=== PATIENT | male | born 1960 | race Two or more races ===

== ENCOUNTER 2018-05-04 08:02 | Emergency (ER) | payer OTHER ==
[~2018-05-04] VITALS: Ht 167.6 cm; Wt 75.7 kg
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
[2018-05-04] MEDS ORDERED: LORAZEPAM INJ 2 MG/ML VIAL ONE (08:19)
[2018-05-04] MEDS ORDERED: ONDANSETRON HCL/PF 4 MG/2 ML VIAL ONE (08:19)
[2018-05-04 08:27] LABS: BASOPHILS # (AUTO) 0.1 /CMM (0.0-0.2); EOSINOPHILS % (AUTO) 3.9 % (0.0-6.0); HEMATOCRIT 48 % (39-51); HEMOGLOBIN 15.6 g/dL (13.5-17.5); LYMPHOCYTES # (AUTO) 2.9 /CMM (0.8-4.8); MEAN CORPUSCULAR HGB CONC 33 g/dl (31.0-36.0); MEAN CORPUSCULAR VOLUME 85 fL (80-96); MONOCYTES # (AUTO) 0.8 /CMM (0.1-1.30); MONOCYTES % (AUTO) 10.9 % (2.0-12.0); NEUTROPHILS # (AUTO) 2.9 /CMM (1.8-8.9); NEUTROPHILS % (AUTO) 42.2 % (43.0-81.0); PLATELET COUNT (AUTO) 287 /CMM (150-450); RED BLOOD CELL COUNT(AUTO) 5.57 MIL/uL (4.5-6.0)
[2018-05-04] MEDS ORDERED: ONDANSETRON HCL/PF 4 MG/2 ML VIAL IVP ONE (08:30)
[2018-05-04] MEDS ORDERED: LORAZEPAM INJ 2 MG/ML VIAL IVP ONE (08:30)
[2018-05-04] MEDS ORDERED: IV NS 0.9% 1,000 ML BAG IV ONE (08:30)
[2018-05-04 08:47] LABS: CALCIUM, SERUM 8.9 mg/dL (8.5-10.1); CARBON DIOXIDE 25 mmol/L (21-32); CHLORIDE 103 mmol/L (98-107); GLUCOSE 182 mg/dL (74-106); POTASSIUM 3.2 mmol/L (3.5-5.1); SODIUM SERUM 139 mmol/L (136-145); UREA NITROGEN, BLOOD 15 mg/dL (7-18)
[2018-05-04 08:51] LABS: CREATINE KINASE, TOTAL 148 U/L (39-308)
[2018-05-04 08:53] LABS: ALANINE AMINOTRANSFERASE 37 U/L (12-78); ALBUMIN 4.1 g/dL (3.4-5.0); ALCOHOL, BLOOD < 3 mg/dL (0-0); ALKALINE PHOSPHATASE 117 U/L (46-116); ASPARTATE AMINOTRANSFERASE 24 U/L (15-37); BILIRUBIN,DIRECT 0.1 mg/dL (0.0-0.2); BILIRUBIN,TOTAL 0.4 mg/dL (0.2-1.0); TOTAL PROTEIN, SERUM 7.6 g/dL (6.4-8.2)
[2018-05-04 08:54] LABS: SALICYLATE 2.4 mg/dL (2.8-20.0)
--- NOTE | 2018-05-04 08:56 | NUR ---
MASH PREPARATORY OPERATOR AT BEDSIDE TO TAKE PATIENT FOR CT SCAN
--- NOTE | 2018-05-04 09:58 | NUR ---
Patient discharged to home in stable condition. Written and verbal after care instructions given. Patient verbalizes understanding of instruction. IV removed. Catheter intact and site benign. Pressure and 4x4 applied to site. No bleeding noted.
[2018-05-04 09:59] VITALS: BP 144/90
== END 2018-05-04 10:00 | disposition home or self-care (01) ==
LOC: ER 08:08
DX: R42 Dizziness and giddiness (principal); F15.10 Other stimulant abuse, uncomplicated; F12.90 Cannabis use, unspecified, uncomplicated; I10 Essential (primary) hypertension; E11.9 Type 2 diabetes mellitus without complications
CPT/HCPCS: 36415; 70450; 80048; 80076; 80329; 82550; 85025; 96361; 96374; 96375; 99284; A4606; G0480 ×2; J2060; J2405; J7030; Z7610

== ENCOUNTER 2018-10-18 13:03 | Emergency (ER) | payer MEDICAID, OTHER ==
[~2018-10-18] VITALS: Ht 165.1 cm; Wt 69.9 kg
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
--- NOTE | 2018-10-18 13:12 | NUR ---
DR ELLIS AT BEDSIDE
[2018-10-18 13:27] LABS: BASOPHILS # (AUTO) 0.1 /CMM (0.0-0.2); BASOPHILS % (AUTO) 1.6 % (0.0-2.0); EOSINOPHILS % (AUTO) 2.4 % (0.0-6.0); HEMATOCRIT 47 % (39-51); HEMOGLOBIN 16.2 g/dL (13.5-17.5); LYMPHOCYTES # (AUTO) 1.8 /CMM (0.8-4.8); LYMPHOCYTES % (AUTO) 34.3 % (20.0-44.0); MEAN CORPUSCULAR HGB CONC 35 g/dl (31.0-36.0); MEAN CORPUSCULAR VOLUME 91 fL (80-96); MONOCYTES # (AUTO) 0.5 /CMM (0.1-1.30); MONOCYTES % (AUTO) 9.4 % (2.0-12.0); NEUTROPHILS # (AUTO) 2.7 /CMM (1.8-8.9); NEUTROPHILS % (AUTO) 52.3 % (43.0-81.0); PLATELET COUNT (AUTO) 279 /CMM (150-450); RED BLOOD CELL COUNT(AUTO) 5.13 MIL/uL (4.5-6.0); WHITE BLOOD COUNT (AUTO) 5.2 K/uL (4.3-11.0)
[2018-10-18] MEDS ORDERED: IV NS 0.9% 1,000 ML BAG IV ONE (13:30)
[2018-10-18 13:31] LABS: CALCIUM, SERUM 8.9 mg/dL (8.5-10.1); POTASSIUM 3.8 mmol/L (3.5-5.1)
[2018-10-18 13:37] LABS: ALBUMIN 3.6 g/dL (3.4-5.0); BILIRUBIN,DIRECT 0.1 mg/dL (0.0-0.2); TOTAL PROTEIN, SERUM 7.1 g/dL (6.4-8.2)
--- NOTE | 2018-10-18 13:41 | NUR ---
PROVIDED W MEAL TRAY, TOLERATING PO WELL.
[2018-10-18] MEDS ORDERED: LATA2.5D7 EACHEYE (14:16)
[2018-10-18] MEDS ORDERED: LISI10TA5 PO (14:16)
[2018-10-18] MEDS ORDERED: METF-441 PO (14:16)
[2018-10-18] MEDS ORDERED: ASPI-1152 PO (14:16)
[2018-10-18] MEDS ORDERED: CLOP75TA15 PO (14:16)
[2018-10-18] MEDS ORDERED: ATOR40TA PO (14:16)
--- NOTE | 2018-10-18 14:41 | NUR ---
IV removed. Catheter intact and site benign. Pressure and 4x4 applied to site. No bleeding noted.Patient discharged to home with son in stable condition. Written and verbal after care instructions given. Patient verbalizes understanding of instruction.
[2018-10-18 14:42] VITALS: BP 143/101
== END 2018-10-18 14:47 | disposition home or self-care (01) ==
LOC: ER 13:07
DX: R79.89 Other specified abnormal findings of blood chemistry (principal); R42 Dizziness and giddiness; I10 Essential (primary) hypertension; E11.9 Type 2 diabetes mellitus without complications; Z79.84 Long term (current) use of oral hypoglycemic drugs; Z79.82 Long term (current) use of aspirin; Z79.899 Other long term (current) drug therapy
CPT/HCPCS: 36415; 80048; 80076; 83690; 84484; 85025; 93005; 96360; 99284; J7030

== ENCOUNTER 2018-10-20 15:30 | Emergency (ER) | payer MEDICAID, OTHER ==
[~2018-10-20] VITALS: Ht 165.1 cm; Wt 72.6 kg
[~2018-10-20 15:30] MED LIST: ASPI-1152 PO; ATOR40TA PO; CLOP75TA15 PO; LATA2.5D7 EACHEYE; LISI10TA5 PO; METF-441 PO
--- NOTE | 2018-10-20 15:37 | NUR ---
CALLED TO TRIAGE,"STEPPED OUT TO CALL SOMEONE PER ADMITTING
--- NOTE | 2018-10-20 15:45 | NUR ---
SILVANO 89 from home c/o nausea, "I dont feel good" Patient a/ox3, no distress noted, breathing even and unlabored, no sob noted. Attached on the monitor. Denies pain or discomfort at this time.
[2018-10-20] MEDS ORDERED: ONDANSETRON HCL/PF 4 MG/2 ML VIAL IVP ONE (16:00)
[2018-10-20] MEDS ORDERED: IV NS 0.9% 1,000 ML BAG IV ONE (16:00)
[2018-10-20] MEDS ORDERED: ONDANSETRON HCL/PF 4 MG/2 ML VIAL ONE (16:14)
[2018-10-20 16:19] LABS: BASOPHILS # (AUTO) 0.1 /CMM (0.0-0.2); BASOPHILS % (AUTO) 1.3 % (0.0-2.0); EOSINOPHILS % (AUTO) 2.8 % (0.0-6.0); HEMATOCRIT 44 % (39-51); HEMOGLOBIN 14.7 g/dL (13.5-17.5); LYMPHOCYTES # (AUTO) 1.9 /CMM (0.8-4.8); MEAN CORPUSCULAR HGB CONC 33 g/dl (31.0-36.0); MEAN CORPUSCULAR VOLUME 93 fL (80-96); MONOCYTES # (AUTO) 0.6 /CMM (0.1-1.30); MONOCYTES % (AUTO) 10.1 % (2.0-12.0); NEUTROPHILS # (AUTO) 3.4 /CMM (1.8-8.9); NEUTROPHILS % (AUTO) 54.8 % (43.0-81.0); RED BLOOD CELL COUNT(AUTO) 4.76 MIL/uL (4.5-6.0); WHITE BLOOD COUNT (AUTO) 6.2 K/uL (4.3-11.0)
[2018-10-20 16:22] LABS: CALCIUM, SERUM 8.3 mg/dL (8.5-10.1); POTASSIUM 3.9 mmol/L (3.5-5.1)
[2018-10-20 16:27] LABS: ALBUMIN 3.3 g/dL (3.4-5.0); BILIRUBIN,DIRECT 0.1 mg/dL (0.0-0.2); BILIRUBIN,TOTAL 0.4 mg/dL (0.2-1.0); TOTAL PROTEIN, SERUM 6.5 g/dL (6.4-8.2)
[2018-10-20 16:37] LABS: PLATELET COUNT (AUTO) 407 /CMM (150-450)
--- NOTE | 2018-10-20 17:16 | NUR ---
PATIENT'S BROTHER JORGE [phone], CALL HIM WHEN PATIENT IS READY FOR BUSINESS WRITER.
[2018-10-20 17:20] LABS: APPEARANCE,URINE CLEAR (CLEAR); BILIRUBIN,URINE NEGATIVE (NEGATIVE); BLOOD, URINE NEGATIVE Ery/uL (NEGATIVE); COLOR,URINE YELLOW (YELLOW); KETONES,URINE TRACE (NEGATIVE); LEUKOCYTE ESTERASE ,URINE NEGATIVE (NEGATIVE); NITRITE, URINE NEGATIVE (NEGATIVE); PROTEIN,URINE NEGATIVE (NEGATIVE); UGLUCOSE NEGATIVE (NEGATIVE)
[2018-10-20 17:41] LABS: BACTERIA,URINE Rare /HPF (None Seen); MUCUS,URINE Few /LPF (None Seen); RBC,URINE 0-2 /HPF (0-2); SPERM,URINE Rare /HPF (None Seen); SQUAMOUS EPITHELIAL CELL,UR 0-2 /HPF (None Seen); WBC,URINE 0-2 /HPF (0-3)
--- NOTE | 2018-10-20 18:53 | NUR ---
PIV REMOVED, RX PROVIDED. Patient discharged to home in stable condition. Written and verbal after care instructions given. Patient verbalizes understanding of instruction.
[2018-10-20 18:55] VITALS: BP 135/97
== END 2018-10-20 18:56 | disposition home or self-care (01) ==
LOC: ER 15:30
DX: R55 Syncope and collapse (principal); R11.0 Nausea; E86.0 Dehydration; E88.09 Other disorders of plasma-protein metabolism, not elsewhere classified; R00.1 Bradycardia, unspecified; E11.9 Type 2 diabetes mellitus without complications; I10 Essential (primary) hypertension; Z60.2 Problems related to living alone; Z79.82 Long term (current) use of aspirin
CPT/HCPCS: 36415; 71045; 80048; 80076; 81001; 83690; 84484; 85025; 93005; 96361; 96374; 99284; J2405; J7030; J7040; 81000-TC

== ENCOUNTER 2019-06-01 21:04 | Emergency (ER) | payer OTHER, MEDICAID ==
[~2019-06-01] VITALS: Ht 167.6 cm; Wt 76.2 kg
[~2019-06-01 21:04] MED LIST changes: -LATA2.5D7 EACHEYE; +LATA2.5D7 RIGHTEYE
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
[2019-06-01 21:55] LABS: BASOPHILS # (AUTO) 0.1 /CMM (0.0-0.2); BASOPHILS % (AUTO) 1.2 % (0.0-2.0); EOSINOPHILS % (AUTO) 1.6 % (0.0-6.0); HEMATOCRIT 47 % (39-51); LYMPHOCYTES # (AUTO) 1.9 /CMM (0.8-4.8); LYMPHOCYTES % (AUTO) 19.5 % (20.0-44.0); MEAN CORPUSCULAR HGB CONC 34 g/dl (31.0-36.0); MEAN CORPUSCULAR VOLUME 94 fL (80-96); MONOCYTES # (AUTO) 0.7 /CMM (0.1-1.30); MONOCYTES % (AUTO) 7.7 % (2.0-12.0); NEUTROPHILS # (AUTO) 6.8 /CMM (1.8-8.9); PLATELET COUNT (AUTO) 271 /CMM (150-450); RED BLOOD CELL COUNT(AUTO) 5.02 MIL/uL (4.5-6.0); WHITE BLOOD COUNT (AUTO) 9.7 K/uL (4.3-11.0)
--- NOTE | 2019-06-01 21:58 | NUR ---
to ct on wily
[2019-06-01] MEDS ORDERED: IV NS 0.9% 1,000 ML BAG IV ONE (22:00)
[2019-06-01 22:08] LABS: CALCIUM, SERUM 8.8 mg/dL (8.5-10.1); CREATININE 1.1 mg/dL (0.6-1.3)
--- NOTE | 2019-06-01 22:20 | NUR ---
PT CLEARED BY TO HAVE FOOD. FOOD AND DRINK PROVIDED
--- NOTE | 2019-06-01 22:56 | NUR ---
Patient discharged to home in stable condition. Written and verbal after care instructions given. Patient verbalizes understanding of instruction.IV removed. Catheter intact and site benign. Pressure and 4x4 applied to site. No bleeding noted. Pt ambulatory with a steady gait
[2019-06-01 22:57] VITALS: BP 162/97
== END 2019-06-01 22:57 | disposition home or self-care (01) ==
LOC: ER 21:13
DX: R53.83 Other fatigue (principal); R42 Dizziness and giddiness; I10 Essential (primary) hypertension; E11.9 Type 2 diabetes mellitus without complications; F17.200 Nicotine dependence, unspecified, uncomplicated; Z86.73 Personal history of transient ischemic attack (TIA), and cerebral infarction without residual deficits; Z60.2 Problems related to living alone; Z79.84 Long term (current) use of oral hypoglycemic drugs; Z79.82 Long term (current) use of aspirin; Z79.899 Other long term (current) drug therapy
CPT/HCPCS: 36415; 70450; 71045; 80048; 82962; 84484; 85025; 96360; 99284; J7030

== ENCOUNTER 2019-06-08 18:00 | Emergency (ER) | payer MEDICAID ==
[~2019-06-08] VITALS: Ht 170.2 cm; Wt 75.7 kg
[~2019-06-08 18:00] MED LIST changes: +LATA2.5D7 EACHEYE; -LATA2.5D7 RIGHTEYE
--- NOTE | 2019-06-08 18:02 | NUR ---
BIBRA38 C/O FEELING FATIGUE X 1 WEEK, NAUSEOUS SINCE THIS MORNING, PT AAOX4, -SOB, NAD NOTED, VSS, PENDING MD ZELAYA
[2019-06-08 18:26] LABS: BASOPHILS # (AUTO) 0.1 /CMM (0.0-0.2); BASOPHILS % (AUTO) 0.9 % (0.0-2.0); EOSINOPHILS % (AUTO) 1.8 % (0.0-6.0); HEMATOCRIT 48 % (39-51); HEMOGLOBIN 16.3 g/dL (13.5-17.5); LYMPHOCYTES # (AUTO) 1.9 /CMM (0.8-4.8); LYMPHOCYTES % (AUTO) 25.2 % (20.0-44.0); MEAN CORPUSCULAR HGB CONC 34 g/dl (31.0-36.0); MEAN CORPUSCULAR VOLUME 94 fL (80-96); MONOCYTES # (AUTO) 0.7 /CMM (0.1-1.30); MONOCYTES % (AUTO) 9.1 % (2.0-12.0); NEUTROPHILS # (AUTO) 4.6 /CMM (1.8-8.9); PLATELET COUNT (AUTO) 271 /CMM (150-450); RED BLOOD CELL COUNT(AUTO) 5.09 MIL/uL (4.5-6.0); WHITE BLOOD COUNT (AUTO) 7.4 K/uL (4.3-11.0)
[2019-06-08 18:35] LABS: CALCIUM, SERUM 8.8 mg/dL (8.5-10.1)
[2019-06-08 18:41] LABS: ALBUMIN 3.7 g/dL (3.4-5.0); BILIRUBIN,TOTAL 0.2 mg/dL (0.2-1.0); TOTAL PROTEIN, SERUM 7.1 g/dL (6.4-8.2)
[2019-06-08 19:00] VITALS: BP 149/90
[2019-06-08 19:01] LABS: THYROID STIMULATING HORMONE 1.34 uIU/mL (0.358-3.74)
--- NOTE | 2019-06-08 19:26 | NUR ---
Patient discharged to home in stable condition. Written and verbal after care instructions given. Patient verbalizes understanding of instruction.
== END 2019-06-08 19:31 | disposition home or self-care (01) ==
LOC: ER 18:03
DX: R53.1 Weakness (principal); I10 Essential (primary) hypertension; E11.9 Type 2 diabetes mellitus without complications; F10.10 Alcohol abuse, uncomplicated; F17.200 Nicotine dependence, unspecified, uncomplicated; Y90.9 Presence of alcohol in blood, level not specified; Z60.2 Problems related to living alone; Z79.82 Long term (current) use of aspirin; Z79.899 Other long term (current) drug therapy; Z86.73 Personal history of transient ischemic attack (TIA), and cerebral infarction without residual deficits
CPT/HCPCS: 36415; 71045-TC; 80048-TC; 80076-TC; 82962-TC; 84443-TC; 84484-TC; 85025-TC

== ENCOUNTER 2019-06-13 07:38 | Emergency (ER) | payer MEDICAID, OTHER ==
[~2019-06-13] VITALS: Ht 160 cm; Wt 75.7 kg
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
--- NOTE | 2019-06-13 07:56 | NUR ---
DR BARNES AT BEDSIDE FOR EVAL.
[2019-06-13] MEDS ORDERED: IV NS 0.9% 1,000 ML BAG IV ONE (08:00)
--- NOTE | 2019-06-13 08:02 | NUR ---
IV LINE STARTED BLOOD DRAWN AND SENT TO LAB.
[2019-06-13 08:15] LABS: BASOPHILS # (AUTO) 0.1 /CMM (0.0-0.2); BASOPHILS % (AUTO) 1.3 % (0.0-2.0); EOSINOPHILS % (AUTO) 1.2 % (0.0-6.0); HEMATOCRIT 48 % (39-51); HEMOGLOBIN 16.5 g/dL (13.5-17.5); LYMPHOCYTES # (AUTO) 1.7 /CMM (0.8-4.8); LYMPHOCYTES % (AUTO) 19.9 % (20.0-44.0); MEAN CORPUSCULAR HGB CONC 34 g/dl (31.0-36.0); MEAN CORPUSCULAR VOLUME 94 fL (80-96); MONOCYTES # (AUTO) 0.9 /CMM (0.1-1.30); MONOCYTES % (AUTO) 10.4 % (2.0-12.0); NEUTROPHILS # (AUTO) 5.6 /CMM (1.8-8.9); NEUTROPHILS % (AUTO) 67.2 % (43.0-81.0); PLATELET COUNT (AUTO) 280 /CMM (150-450); RED BLOOD CELL COUNT(AUTO) 5.15 MIL/uL (4.5-6.0); WHITE BLOOD COUNT (AUTO) 8.4 K/uL (4.3-11.0)
[2019-06-13 08:23] LABS: CALCIUM, SERUM 8.8 mg/dL (8.5-10.1); CREATININE 0.8 mg/dL (0.6-1.3); POTASSIUM 3.5 mmol/L (3.5-5.1)
[2019-06-13 08:28] LABS: BILIRUBIN,DIRECT 0.1 mg/dL (0.0-0.2); BILIRUBIN,TOTAL 0.5 mg/dL (0.2-1.0); TOTAL PROTEIN, SERUM 7.2 g/dL (6.4-8.2)
--- NOTE | 2019-06-13 09:48 | NUR ---
PT SIGNED HOMELESS WAIVER FORM. DENIES ANY DIZZINESS AT THIS TIME. AIV removed. Catheter intact and site benign. Pressure and 4x4 applied to site. No bleeding noted.Patient discharged to home in stable condition. DISCHARGE IN STABLE CONDITION.
[2019-06-13 09:51] VITALS: BP 140/76
== END 2019-06-13 09:52 | disposition home or self-care (01) ==
LOC: ER 07:43
DX: R53.1 Weakness (principal); R42 Dizziness and giddiness; E11.65 Type 2 diabetes mellitus with hyperglycemia; I10 Essential (primary) hypertension; F10.10 Alcohol abuse, uncomplicated; F17.200 Nicotine dependence, unspecified, uncomplicated; Y90.9 Presence of alcohol in blood, level not specified; Z60.2 Problems related to living alone; Z79.82 Long term (current) use of aspirin; Z79.899 Other long term (current) drug therapy; Z86.73 Personal history of transient ischemic attack (TIA), and cerebral infarction without residual deficits
CPT/HCPCS: 36415; 80048; 80076; 82962; 84484; 85025; 93005; 96360; 99284; J7030 ×2

== ENCOUNTER 2019-07-12 17:29 | Emergency (ER) | payer OTHER ==
[~2019-07-12] VITALS: Ht 167.6 cm; Wt 72.6 kg
[~2019-07-12 17:29] MED LIST changes: -LATA2.5D7 EACHEYE; +LATA2.5D7 RIGHTEYE
--- NOTE | 2019-07-12 17:40 | NUR ---
BIBRA39 FROM [facility] C/O DIZZINESS/VERTIGO SINCE WAKING UP THIS MORNING. PATIENT A/OX4, BREATHING EVEN AND UNLABORED, NO SOB NOTED. ATTACHED TO THE SUPERVISOR ASSEMBLY AND PACKING.
[2019-07-12 17:55] LABS: BASOPHILS # (AUTO) 0.1 /CMM (0.0-0.2); BASOPHILS % (AUTO) 1.2 % (0.0-2.0); EOSINOPHILS % (AUTO) 2.1 % (0.0-6.0); HEMATOCRIT 50 % (39-51); HEMOGLOBIN 16.9 g/dL (13.5-17.5); LYMPHOCYTES % (AUTO) 23.8 % (20.0-44.0); MEAN CORPUSCULAR HGB CONC 34 g/dl (31.0-36.0); MEAN CORPUSCULAR VOLUME 94 fL (80-96); MONOCYTES # (AUTO) 0.9 /CMM (0.1-1.30); MONOCYTES % (AUTO) 11.5 % (2.0-12.0); NEUTROPHILS % (AUTO) 61.4 % (43.0-81.0); PLATELET COUNT (AUTO) 307 /CMM (150-450); RED BLOOD CELL COUNT(AUTO) 5.34 MIL/uL (4.5-6.0); WHITE BLOOD COUNT (AUTO) 8.2 K/uL (4.3-11.0)
--- NOTE | 2019-07-12 17:58 | NUR ---
TAKEN TO CT.
[2019-07-12] MEDS ORDERED: IV NS 0.9% 1,000 ML BAG IV ONE (18:00)
[2019-07-12] MEDS ORDERED: ONDANSETRON HCL/PF 4 MG/2 ML VIAL IVP ONE (18:00)
[2019-07-12] MEDS ORDERED: MECLIZINE HCL 12.5 MG TABLET PO ONE (18:00)
[2019-07-12] MEDS ORDERED: MECLIZINE HCL 25 MG TABLET ONE (18:01)
[2019-07-12] MEDS ORDERED: ONDANSETRON HCL/PF 4 MG/2 ML VIAL ONE (18:01)
[2019-07-12 18:07] LABS: CALCIUM, SERUM 8.9 mg/dL (8.5-10.1)
[2019-07-12 18:12] LABS: ALBUMIN 3.6 g/dL (3.4-5.0); BILIRUBIN,DIRECT 0.1 mg/dL (0.0-0.2); BILIRUBIN,TOTAL 0.4 mg/dL (0.2-1.0); TOTAL PROTEIN, SERUM 7.1 g/dL (6.4-8.2)
--- NOTE | 2019-07-12 18:46 | NUR ---
IV removed. Catheter intact and site benign. Pressure and 4x4 applied to site. No bleeding noted. Patient given written and verbal discharge instructions. Patient verbalizes understanding of instructions. Patient is ambulatory with steady gait. Refuses offer of skilled nursing placement. Patient given list of available shelters in surrounding area. Tap card provided, sandwich given. Clothes are adequate.
[2019-07-12 18:47] VITALS: BP 140/99
== END 2019-07-12 18:48 | disposition home or self-care (01) ==
LOC: ER 17:32
DX: R42 Dizziness and giddiness (principal); E86.0 Dehydration; R51 Headache; I10 Essential (primary) hypertension; Z86.73 Personal history of transient ischemic attack (TIA), and cerebral infarction without residual deficits; E11.9 Type 2 diabetes mellitus without complications; I77.89 Other specified disorders of arteries and arterioles; Z79.84 Long term (current) use of oral hypoglycemic drugs; Z79.82 Long term (current) use of aspirin
CPT/HCPCS: 36415; 70450; 71045; 80048; 80076; 82962; 85025; 93005; 96361; 96374; 99285; J2405; J7030; J8597

== ENCOUNTER 2019-07-25 19:46 | Emergency (ER) | payer MEDICAID, OTHER ==
[~2019-07-25] VITALS: Ht 165.1 cm; Wt 75.3 kg
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
--- NOTE | 2019-07-25 20:00 | NUR ---
PT IV LINE ESTABLISHED BLOOD DRAWN AND SENT TO LAB.
--- NOTE | 2019-07-25 20:10 | NUR ---
SEEN AND EXAMINED BY .
[2019-07-25 20:26] LABS: BASOPHILS # (AUTO) 0.1 /CMM (0.0-0.2); BASOPHILS % (AUTO) 1.4 % (0.0-2.0); HEMATOCRIT 46 % (39-51); HEMOGLOBIN 15.6 g/dL (13.5-17.5); LYMPHOCYTES # (AUTO) 2.2 /CMM (0.8-4.8); LYMPHOCYTES % (AUTO) 25.3 % (20.0-44.0); MEAN CORPUSCULAR HGB CONC 34 g/dl (31.0-36.0); MEAN CORPUSCULAR VOLUME 95 fL (80-96); MONOCYTES # (AUTO) 0.8 /CMM (0.1-1.30); MONOCYTES % (AUTO) 9.5 % (2.0-12.0); NEUTROPHILS # (AUTO) 5.2 /CMM (1.8-8.9); NEUTROPHILS % (AUTO) 58.8 % (43.0-81.0); PLATELET COUNT (AUTO) 325 /CMM (150-450); RED BLOOD CELL COUNT(AUTO) 4.91 MIL/uL (4.5-6.0); WHITE BLOOD COUNT (AUTO) 8.8 K/uL (4.3-11.0)
[2019-07-25 20:30] LABS: CALCIUM, SERUM 8.4 mg/dL (8.5-10.1); POTASSIUM 3.7 mmol/L (3.5-5.1)
[2019-07-25 22:17] VITALS: BP 137/68
--- NOTE | 2019-07-25 22:34 | NUR ---
Patient given written and verbal discharge instructions. Patient verbalizes understanding of instructions. Patient is ambulatory with steady gait. Refuses offer of custodial placement. Patient given list of available shelters in surrounding area.
--- NOTE | 2019-07-25 22:34 | NUR ---
IV removed. Catheter intact and site benign. Pressure and 4x4 applied to site. No bleeding noted.
== END 2019-07-25 22:36 | disposition home or self-care (01) ==
LOC: ER 20:00
DX: R55 Syncope and collapse (principal); I10 Essential (primary) hypertension; E11.9 Type 2 diabetes mellitus without complications; Z60.2 Problems related to living alone; Z79.899 Other long term (current) drug therapy; Z86.73 Personal history of transient ischemic attack (TIA), and cerebral infarction without residual deficits
CPT/HCPCS: 36415; 71045-TC; 80048-TC; 84484-TC; 85025-TC

== ENCOUNTER 2019-10-01 11:39 | Emergency (ER) | payer MEDICAID, OTHER ==
[~2019-10-01] VITALS: Ht 162.6 cm; Wt 71.2 kg
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
[2019-10-01] MEDS ORDERED: MECLIZINE HCL 25 MG TABLET ONE (12:44)
[2019-10-01 12:58] LABS: BASOPHILS # (AUTO) 0.1 /CMM (0.0-0.2); BASOPHILS % (AUTO) 1.2 % (0.0-2.0); EOSINOPHILS % (AUTO) 1.5 % (0.0-6.0); HEMATOCRIT 48 % (39-51); LYMPHOCYTES # (AUTO) 1.7 /CMM (0.8-4.8); LYMPHOCYTES % (AUTO) 20.1 % (20.0-44.0); MEAN CORPUSCULAR HGB CONC 33 g/dl (31.0-36.0); MEAN CORPUSCULAR VOLUME 95 fL (80-96); MONOCYTES # (AUTO) 0.8 /CMM (0.1-1.30); MONOCYTES % (AUTO) 9.5 % (2.0-12.0); NEUTROPHILS # (AUTO) 5.8 /CMM (1.8-8.9); NEUTROPHILS % (AUTO) 67.7 % (43.0-81.0); PLATELET COUNT (AUTO) 333 /CMM (150-450); RED BLOOD CELL COUNT(AUTO) 5.03 MIL/uL (4.5-6.0); WHITE BLOOD COUNT (AUTO) 8.5 K/uL (4.3-11.0)
[2019-10-01] MEDS ORDERED: IV NS 0.9% 1,000 ML BAG IV ONE (13:00)
[2019-10-01] MEDS ORDERED: MECLIZINE HCL 12.5 MG TABLET PO ONE (13:00)
[2019-10-01 13:06] LABS: CALCIUM, SERUM 8.5 mg/dL (8.5-10.1); CREATININE 0.8 mg/dL (0.6-1.3); POTASSIUM 3.8 mmol/L (3.5-5.1)
--- NOTE | 2019-10-01 13:23 | NUR ---
DENIES DIZZINESS AT THIS TIME.
--- NOTE | 2019-10-01 14:30 | NUR ---
SEEN BY CHRISSY FROM VAN DRIVER
--- NOTE | 2019-10-01 14:44 | NUR ---
IV removed. Catheter intact and site benign. Pressure and 4x4 applied to site. No bleeding noted.Patient discharged to home in stable condition. Written and verbal after care instructions given. Patient verbalizes understanding of instruction.
[2019-10-01 14:45] VITALS: BP 132/81
--- NOTE | 2019-10-01 14:45 | NUR ---
Patient given written and verbal discharge instructions. Patient verbalizes understanding of instructions. Patient is ambulatory with steady gait. Refuses offer of senior living placement. Patient given list of available shelters in surrounding area.
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
== END 2019-10-01 14:46 | disposition home or self-care (01) ==
LOC: ER 11:45
DX: R42 Dizziness and giddiness (principal); I10 Essential (primary) hypertension; E78.5 Hyperlipidemia, unspecified; E11.9 Type 2 diabetes mellitus without complications; F17.200 Nicotine dependence, unspecified, uncomplicated; Z59.0 Homelessness; Z86.73 Personal history of transient ischemic attack (TIA), and cerebral infarction without residual deficits; Z60.2 Problems related to living alone; Z79.84 Long term (current) use of oral hypoglycemic drugs; Z79.82 Long term (current) use of aspirin; Z79.899 Other long term (current) drug therapy
CPT/HCPCS: 36415; 71045; 80048; 82962; 84484; 85025; 85730; 93005; 96360; 99285; J7030; J8597

== ENCOUNTER 2019-10-01 15:12 | Emergency (ER) | payer MEDICAID ==
[~2019-10-01] VITALS: Ht 162.6 cm; Wt 71.2 kg
[2019-10-01] MEDS ORDERED: IV NS 0.9% 1,000 ML BAG IV ONE (15:30)
[2019-10-01] MEDS ORDERED: METOCLOPRAMIDE HCL 10 MG/2 ML VIAL IV ONE (15:30)
[2019-10-01] MEDS ORDERED: SUMATRIPTAN SUCCINATE 6 MG/0.5 ML VIAL SQ ONE ×2 (15:30→15:31)
[2019-10-01] MEDS ORDERED: diphenhydrAMINE HCL 50 MG/ML VIAL IV ONE (15:30)
[2019-10-01] MEDS ORDERED: METOCLOPRAMIDE HCL 10 MG/2 ML VIAL ONE (15:31)
[2019-10-01] MEDS ORDERED: diphenhydrAMINE HCL 50 MG/ML VIAL ONE (15:31)
--- NOTE | 2019-10-01 15:45 | NUR ---
PER DR. PATTON, BLOOD WORK DOESN'T NEED TO BE REPEATED.
--- NOTE | 2019-10-01 15:52 | NUR ---
PATIENT TAKEN TO RADIOLOGY.
--- NOTE | 2019-10-01 17:20 | NUR ---
PATIENT AMBULATES TO RESTROOM WITH STEADY GAIT.
--- NOTE | 2019-10-01 18:29 | NUR ---
patient a/ox4, breathing even and unlabored, no sob noted, needs attended. Dizziness, no distress noted. IV removed. Catheter intact and site benign. Pressure and 4x4 applied to site. No bleeding noted.Patient discharged to home in stable condition. Written and verbal after care instructions given. Patient verbalizes understanding of instruction.
[2019-10-01 18:34] VITALS: BP 153/107
--- NOTE | 2019-10-01 18:34 | NUR ---
Patient given written and verbal discharge instructions. Patient verbalizes understanding of instructions. Patient is ambulatory with steady gait. Refuses offer of alf placement. Patient given list of available shelters in surrounding area.
== END 2019-10-01 18:35 | disposition home or self-care (01) ==
LOC: ER 15:15
DX: R42 Dizziness and giddiness (principal); E11.9 Type 2 diabetes mellitus without complications; I10 Essential (primary) hypertension; F17.200 Nicotine dependence, unspecified, uncomplicated; Z79.84 Long term (current) use of oral hypoglycemic drugs; Z79.82 Long term (current) use of aspirin; Z79.899 Other long term (current) drug therapy
CPT/HCPCS: 70450; 71045; 93005; 96361; 96372; 96374; 96375; 99285; J1200; J2765; J3030; J7030

== ENCOUNTER 2019-10-04 14:14 | Emergency (ER) | payer MEDICAID, OTHER ==
[~2019-10-04] VITALS: Ht 162.6 cm; Wt 71.2 kg
--- NOTE | 2019-10-04 14:15 | NUR ---
[facility] C/O DIZZINESS, PT IS AAOX4, NOT IN RESPIRATORY DISTRESS, V/S STABLE, KEPT RESTED AND COMFORTABLE, WILL CONTINUE TO MONITOR.
--- NOTE | 2019-10-04 14:35 | NUR ---
parking lot laborer at bedside for blood draw
[2019-10-04 14:50] LABS: BASOPHILS # (AUTO) 0.1 /CMM (0.0-0.2); BASOPHILS % (AUTO) 1.9 % (0.0-2.0); EOSINOPHILS % (AUTO) 2.9 % (0.0-6.0); HEMATOCRIT 48 % (39-51); HEMOGLOBIN 16.2 g/dL (13.5-17.5); LYMPHOCYTES % (AUTO) 16.2 % (20.0-44.0); MEAN CORPUSCULAR HGB CONC 34 g/dl (31.0-36.0); MEAN CORPUSCULAR VOLUME 94 fL (80-96); MONOCYTES # (AUTO) 0.5 /CMM (0.1-1.30); MONOCYTES % (AUTO) 7.4 % (2.0-12.0); NEUTROPHILS # (AUTO) 4.4 /CMM (1.8-8.9); NEUTROPHILS % (AUTO) 71.6 % (43.0-81.0); PLATELET COUNT (AUTO) 285 /CMM (150-450); RED BLOOD CELL COUNT(AUTO) 5.06 MIL/uL (4.5-6.0); WHITE BLOOD COUNT (AUTO) 6.1 K/uL (4.3-11.0)
[2019-10-04 14:55] LABS: CALCIUM, SERUM 8.6 mg/dL (8.5-10.1); CREATININE 0.8 mg/dL (0.6-1.3); POTASSIUM 3.9 mmol/L (3.5-5.1)
[2019-10-04 15:28] LABS: ALBUMIN 3.7 g/dL (3.4-5.0); BILIRUBIN,DIRECT 0.1 mg/dL (0.0-0.2); BILIRUBIN,TOTAL 0.5 mg/dL (0.2-1.0)
--- NOTE | 2019-10-04 15:57 | NUR ---
Patient given written and verbal discharge instructions. Patient verbalizes understanding of instructions. Patient is ambulatory with steady gait. Refuses offer of fdc placement. Patient given list of available shelters in surrounding area.
[2019-10-04 16:01] VITALS: BP 131/84
== END 2019-10-04 16:01 | disposition home or self-care (01) ==
LOC: ER 14:17
DX: R42 Dizziness and giddiness (principal); I10 Essential (primary) hypertension; E11.9 Type 2 diabetes mellitus without complications; Z60.2 Problems related to living alone; Z79.82 Long term (current) use of aspirin; Z79.899 Other long term (current) drug therapy; Z86.73 Personal history of transient ischemic attack (TIA), and cerebral infarction without residual deficits
CPT/HCPCS: 36415; 80048-TC; 80076-TC; 85025-TC

== ENCOUNTER 2019-10-21 10:29 | Emergency (ER) | payer OTHER ==
[~2019-10-21] VITALS: Ht 170.2 cm; Wt 75.7 kg
[2019-10-21] MEDS ORDERED: METF-440 PO (10:44)
[2019-10-21 11:00] LABS: BASOPHILS # (AUTO) 0.1 /CMM (0.0-0.2); BASOPHILS % (AUTO) 1.4 % (0.0-2.0); EOSINOPHILS % (AUTO) 1.5 % (0.0-6.0); HEMATOCRIT 48 % (39-51); HEMOGLOBIN 16.4 g/dL (13.5-17.5); LYMPHOCYTES # (AUTO) 1.5 /CMM (0.8-4.8); LYMPHOCYTES % (AUTO) 24.7 % (20.0-44.0); MEAN CORPUSCULAR HGB CONC 34 g/dl (31.0-36.0); MEAN CORPUSCULAR VOLUME 94 fL (80-96); MONOCYTES # (AUTO) 0.6 /CMM (0.1-1.30); MONOCYTES % (AUTO) 10.5 % (2.0-12.0); NEUTROPHILS # (AUTO) 3.7 /CMM (1.8-8.9); NEUTROPHILS % (AUTO) 61.9 % (43.0-81.0); PLATELET COUNT (AUTO) 275 /CMM (150-450); RED BLOOD CELL COUNT(AUTO) 5.05 MIL/uL (4.5-6.0); WHITE BLOOD COUNT (AUTO) 5.9 K/uL (4.3-11.0)
[2019-10-21] MEDS ORDERED: IV NS 0.9% 1,000 ML BAG IV ONE (11:00)
[2019-10-21 11:05] LABS: CALCIUM, SERUM 8.8 mg/dL (8.5-10.1); CREATININE 0.9 mg/dL (0.6-1.3); POTASSIUM 3.9 mmol/L (3.5-5.1)
--- NOTE | 2019-10-21 11:15 | NUR ---
BIBRA FROM STREET TO ER BED 12. AAOX4. NOT IN RESP DISTRESS. TRANSFERRED FROM BED TO [facility]. CAME IN FOR FEELING WEAK AND DIZZY. PER PT, HE HAS BEEN HOMELESS AND HAVENT BEEN EATING FOR THE PAST SEVERAL DAYS. NO NEURO DEFICIT NOTED. BS 97. PT ALSO STATES THAT HE WOULD LIKE TO OFF THE STREET AND WOULD LIKE TO TALK TO A AGRICULTURAL LABOR CAMP MANAGER. MD WAS AT THE BEDSIDE FOR EVAL. ORDERS RECEIVED NOTED AND CARRIED OUT.
--- NOTE | 2019-10-21 11:58 | NUR ---
PT TALKING TO HUB INVENTORY SPECIALIST
--- NOTE | 2019-10-21 12:15 | NUR ---
SW CONSULT: Adult Crossing Guard conducted a social security assessor consult to address the pt's homeless status. TANSIHA met with pt at bedside to conduct the consult. Pt appeared emotionally distraught due to his homeless status and asked SW to "get him off the streets today." Pt reported he has been homeless for approximately 5 years, and resides in and around the [facility]. Pt reported he has a brother who lives nearby, but the pt is estranged from him at this time. Pt reported no other social or familial support. Pt reported he receives $900/month in social security supplemental income and is pending food stamps. Pt reported he purchases food with his SSI benefits. Pt reported a history of meth use, and the last time he used was "a couple months ago." Pt denied any drug or alcohol treatment and stated, "I treat myself." Pt denied any psychiatric diagnoses and/or psychiatric hospitalizations. Pt denied any use of DME. TANISHA provided the pt with a homeless resource guide, and additional community resources in the [facility]. TANISHA contacted the [facility], "[facility]" ([phone]) to initiate a potential referral for a housing placement. TANISHA spoke to Katia at [facility] intake, who conducted an assessment of the client. TANISHA provided pertinent information to Sosmoise, per the medical record. Per Katia's report, there are no available placement in the SPA (service planning area) 2 today. [facility] provided the intake ID# [id number] to refer to should the pt be referred again by a SW. Katia reported the pt needs to be referred daily to try and secure a placement. TANISHA contacted ISAIAH Sánchez RN to obtain clothing for the pt upon discharge, and a TAP card. Aforementioned information endorsed to pt's RN, Lm. Per Lm, the pt is medically cleared and will be discharged.
--- NOTE | 2019-10-21 13:01 | NUR ---
PT PROVIDED WITH MEAL
--- NOTE | 2019-10-21 13:57 | NUR ---
PT PROVIDED WITH CLEAN CLOTHES
--- NOTE | 2019-10-21 14:39 | NUR ---
HOMELESS WAIVER SIGNED BY THE PT
[2019-10-21 14:40] VITALS: BP 131/94
== END 2019-10-21 14:40 | disposition home or self-care (01) ==
LOC: ER 10:36
DX: R42 Dizziness and giddiness (principal); E86.0 Dehydration; I10 Essential (primary) hypertension; E78.5 Hyperlipidemia, unspecified; E11.9 Type 2 diabetes mellitus without complications; Z59.0 Homelessness; Z86.73 Personal history of transient ischemic attack (TIA), and cerebral infarction without residual deficits; Z60.2 Problems related to living alone; Z79.899 Other long term (current) drug therapy
CPT/HCPCS: 36415; 71045; 80048; 82962; 84484; 85025; 93005; 96360; 99285; J7030

== ENCOUNTER 2019-11-23 14:20 | Emergency (ER) | payer MEDICAID, OTHER ==
[~2019-11-23] VITALS: Ht 167.6 cm; Wt 76.7 kg
[~2019-11-23 14:20] MED LIST changes: +METF-440 PO; -METF-441 PO
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
--- NOTE | 2019-11-23 14:33 | NUR ---
PT SEEN AND EXAMINED BY .
--- NOTE | 2019-11-23 14:35 | NUR ---
TELE-NEURO ACTIVATED.
--- NOTE | 2019-11-23 14:35 | NUR ---
IV LINE ESTABLISHED BLOOD DRAWN AND SENT TO LAB.
--- NOTE | 2019-11-23 14:38 | NUR ---
PT WHEELED TO CT SCAN VIA ALS PROTOCOL.
[2019-11-23] MEDS ORDERED: IOHEXOL-350 100 ML VIAL IV ONE (14:39)
[2019-11-23] MEDS ORDERED: CT SWABBABLE VALVE TRANS SET 1 EA INFUS.SET MC ONE (14:39)
[2019-11-23] MEDS ORDERED: IV NS 0.9% 250 ML IV ONE (14:39)
[2019-11-23 14:44] LABS: BASOPHILS # (AUTO) 0.1 /CMM (0.0-0.2); BASOPHILS % (AUTO) 1.2 % (0.0-2.0); EOSINOPHILS % (AUTO) 1.4 % (0.0-6.0); HEMATOCRIT 49 % (39-51); HEMOGLOBIN 16.4 g/dL (13.5-17.5); LYMPHOCYTES # (AUTO) 3.3 /CMM (0.8-4.8); LYMPHOCYTES % (AUTO) 29.2 % (20.0-44.0); MEAN CORPUSCULAR HGB CONC 34 g/dl (31.0-36.0); MEAN CORPUSCULAR VOLUME 94 fL (80-96); MONOCYTES # (AUTO) 1.4 /CMM (0.1-1.30); MONOCYTES % (AUTO) 12.4 % (2.0-12.0); NEUTROPHILS # (AUTO) 6.2 /CMM (1.8-8.9); NEUTROPHILS % (AUTO) 55.8 % (43.0-81.0); PLATELET COUNT (AUTO) 295 /CMM (150-450); RED BLOOD CELL COUNT(AUTO) 5.17 MIL/uL (4.5-6.0); WHITE BLOOD COUNT (AUTO) 11.2 K/uL (4.3-11.0)
--- NOTE | 2019-11-23 14:52 | NUR ---
PATIENT IN COMMUNICATION WITH DR FU TELESTROKE
[2019-11-23 14:55] LABS: CALCIUM, SERUM 9.6 mg/dL (8.5-10.1); POTASSIUM 3.8 mmol/L (3.5-5.1)
--- NOTE | 2019-11-23 14:58 | NUR ---
PATIENT REFUSED TPA.
[2019-11-23] MEDS ORDERED: ASPIRIN 325 MG TABLET PO ONE (15:30)
[2019-11-23] MEDS ORDERED: ASPIRIN 325 MG TABLET ONE (15:48)
--- NOTE | 2019-11-23 16:47 | NUR ---
SPOKE TO ENMA BUTADIENE COMPRESSOR OPERATOR FROM [facility]. WILL SET UP A PEER TO PEER DUE TO PATIENT BEING CAPITATED TO [place]
--- NOTE | 2019-11-23 17:29 | NUR ---
CALLED HOUSE SUP FOR TELE BED.
--- NOTE | 2019-11-23 17:49 | NUR ---
called patients brother Logan Roqueer, tried to convince patient to get the covid swab, still refused. patient wants MD DILIP made aware.
[2019-11-23 17:51] VITALS: BP 132/80
--- NOTE | 2019-11-23 17:51 | NUR ---
IV removed. Catheter intact and site benign. Pressure and 4x4 applied to site. No bleeding noted.
--- NOTE | 2019-11-23 17:54 | NUR ---
Patient does not wish to proceed with medical care recommended by Dr. Pro. Patient given information related to possible complications, up to and including , which could occur as a result of leaving the hospital at this time. Patient verbalizes understanding of risks involved due to leaving against medical advice. Patient has signed AMA form.
== END 2019-11-23 18:06 | disposition left against medical advice (07) ==
LOC: ER 14:23
DX: R53.1 Weakness (principal); I10 Essential (primary) hypertension; E11.9 Type 2 diabetes mellitus without complications; F17.200 Nicotine dependence, unspecified, uncomplicated; R51 Headache; Z86.73 Personal history of transient ischemic attack (TIA), and cerebral infarction without residual deficits; Z60.2 Problems related to living alone; Z79.84 Long term (current) use of oral hypoglycemic drugs; Z79.82 Long term (current) use of aspirin; Z79.899 Other long term (current) drug therapy
CPT/HCPCS: 36415; 70450; 70496; 70498; 71045; 80048; 80061; 82962; 84484; 85025; 85730; 93005 ×2; 99285; J7050; Q9967

== ENCOUNTER 2019-11-23 18:30 | Emergency (ER) | payer MEDICAID ==
--- NOTE | 2019-11-23 18:38 | NUR ---
Patient eloped from facility after being seen by MD. ER MD notified.
[2019-11-23] MEDS ORDERED: IV NS 0.9% 1,000 ML IV PRN (18:47)
[2019-11-23] MEDS ORDERED: ATORVASTATIN 40 MG TABLET PO SCH (19:00)
[2019-11-23] MEDS ORDERED: LABETALOL HCL IV 100MG VIAL IV PRN (19:00)
[2019-11-23] MEDS ORDERED: MAG HYDROX/AL HYDROX/SIMETH 30 ML UDC PO PRN (19:00)
[2019-11-23] MEDS ORDERED: ACETAMINOPHEN 325 MG TABLET PO PRN (19:00)
[2019-11-23] MEDS ORDERED: METFORMIN 500 MG TABLET PO SCH (19:00)
[2019-11-23] MEDS ORDERED: LATANOPROST EYE DROP 0.005% 2.5 ML BOTTLE RIGHTEYE SCH (22:00)
[2019-11-24] MEDS ORDERED: ASPIRIN EC 81 MG TABLET.DR PO SCH (09:00)
[2019-11-24] MEDS ORDERED: CLOPIDOGREL BISULFATE 75 MG TABLET PO SCH (09:00)
[2019-11-24] MEDS ORDERED: LISINOPRIL (10MG) 10 MG TABLET PO SCH (09:00)
[2019-11-24] MEDS ORDERED: DOCUSATE SODIUM 100 MG CAPSULE PO SCH (09:00)
== END 2019-11-23 18:40 | disposition left against medical advice (07) ==
LOC: ER 18:37
DX: Z53.21 Procedure and treatment not carried out due to patient leaving prior to being seen by health care provider (principal)

== ENCOUNTER 2019-12-05 15:00 | Emergency (ER) | payer MEDICAID, OTHER ==
[~2019-12-05] VITALS: Ht 165.1 cm; Wt 71.7 kg
[~2019-12-05 15:00] MED LIST changes: -ASPI-1152 PO; +ASPI-1420 PO
--- NOTE | 2019-12-05 15:02 | NUR ---
PT BIBRA TO ER BED 12. WAS W/ ARGUMENT W/ LAUNDROMAT ENGRAVER AUTOMATIC S/P NOT ALLOWED TO USE THE BATHROOM. PT HAS FECES IN HIS CLOTHING. PT ALSO C/O CHRONIC SHOULDER PAIN. STABLE VITALS. AWAITING MD ZELAYA.
--- NOTE | 2019-12-05 15:05 | NUR ---
DR GAMBLE AT BEDSIDE FOR EVAL.
[2019-12-05] MEDS ORDERED: ACETAMINOPHEN ES 500 MG TABLET ONE (15:23)
[2019-12-05] MEDS ORDERED: ACETAMINOPHEN ES 500 MG TABLET PO ONE (15:30)
--- NOTE | 2019-12-05 16:30 | NUR ---
PT GIVEN A MEAL & BRITANY WELL. NAD NOTED AT THIS TIME.
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
--- NOTE | 2019-12-05 17:20 | NUR ---
Patient discharged to home in stable condition. Written and verbal after care instructions given. Patient verbalizes understanding of instruction.
[2019-12-05 17:21] VITALS: BP 128/68
== END 2019-12-05 17:21 | disposition home or self-care (01) ==
LOC: ER 15:00
DX: M25.511 Pain in right shoulder (principal); R63.1 Polydipsia; F17.200 Nicotine dependence, unspecified, uncomplicated; E11.9 Type 2 diabetes mellitus without complications; I10 Essential (primary) hypertension; Z86.73 Personal history of transient ischemic attack (TIA), and cerebral infarction without residual deficits; Z59.0 Homelessness; Z60.2 Problems related to living alone; Z79.82 Long term (current) use of aspirin; Z79.899 Other long term (current) drug therapy

== ENCOUNTER 2019-12-06 16:00 | Emergency (ER) | payer OTHER ==
[~2019-12-06] VITALS: Ht 165.1 cm; Wt 74.8 kg
[2019-12-06] MEDS ORDERED: IV NS 0.9% 1,000 ML BAG IV ONE (17:30)
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
[2019-12-06 19:24] VITALS: BP 153/92
--- NOTE | 2019-12-06 19:24 | NUR ---
Patient discharged to home in stable condition. Written and verbal after care instructions given. Patient verbalizes understanding of instruction.IV removed. Catheter intact and site benign. Pressure and 4x4 applied to site. No bleeding noted. Pt ambulatory with a steady gait. Homeless waiver signed by the pt.
== END 2019-12-06 19:24 | disposition home or self-care (01) ==
LOC: ER 16:02
DX: E86.0 Dehydration (principal); Z59.0 Homelessness; I10 Essential (primary) hypertension; E11.9 Type 2 diabetes mellitus without complications; F17.200 Nicotine dependence, unspecified, uncomplicated; Z86.73 Personal history of transient ischemic attack (TIA), and cerebral infarction without residual deficits; Z79.84 Long term (current) use of oral hypoglycemic drugs; Z79.82 Long term (current) use of aspirin; Z79.899 Other long term (current) drug therapy
CPT/HCPCS: 96360; 99283; J7030

== ENCOUNTER 2020-01-03 17:20 | Emergency (ER) | payer OTHER ==
[~2020-01-03] VITALS: Ht 165.1 cm; Wt 72.6 kg
[2020-01-03 17:42] VITALS: BP 148/98
--- NOTE | 2020-01-03 17:53 | NUR ---
Patient given written and verbal discharge instructions. Patient verbalizes understanding of instructions. Patient is ambulatory with steady gait. Refuses offer of usp placement. Patient given list of available shelters in surrounding area.
== END 2020-01-03 17:56 | disposition home or self-care (01) ==
LOC: ER 17:27
DX: Z00.8 Encounter for other general examination (principal); M79.651 Pain in right thigh; Z59.0 Homelessness; I10 Essential (primary) hypertension; F17.200 Nicotine dependence, unspecified, uncomplicated; E11.9 Type 2 diabetes mellitus without complications; Z86.73 Personal history of transient ischemic attack (TIA), and cerebral infarction without residual deficits; Z79.84 Long term (current) use of oral hypoglycemic drugs; Z79.899 Other long term (current) drug therapy; Z79.82 Long term (current) use of aspirin

== ENCOUNTER 2020-01-07 14:45 | Emergency (ER) | payer OTHER ==
[~2020-01-07] VITALS: Ht 165.1 cm; Wt 72.6 kg
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
--- NOTE | 2020-01-07 15:16 | NUR ---
dr kelly at bedside for eval.
--- NOTE | 2020-01-07 17:24 | NUR ---
pt is medically cleared. was provided w/ food tray. refused to sign ACI and homeless waiver. ambulatory w/ steady gait.
[2020-01-07 17:35] VITALS: BP 136/84
== END 2020-01-07 17:24 | disposition home or self-care (01) ==
LOC: ER 14:53
DX: M25.511 Pain in right shoulder (principal); R41.82 Altered mental status, unspecified; E11.9 Type 2 diabetes mellitus without complications; I10 Essential (primary) hypertension; E78.5 Hyperlipidemia, unspecified; Z59.0 Homelessness; Z79.899 Other long term (current) drug therapy; Z79.82 Long term (current) use of aspirin; Z86.73 Personal history of transient ischemic attack (TIA), and cerebral infarction without residual deficits
CPT/HCPCS: 70450-TC; 72125-TC; 73030-TC; 73060-TC

== ENCOUNTER 2020-07-08 18:28 | Inpatient (IN) | payer MEDICAID, OTHER ==
[~2020-07-08] VITALS: Ht 157.5 cm; Wt 72.6 kg
[~2020-07-08 18:28] MED LIST changes: +LATA2.5D15 RIGHTEYE; -LATA2.5D7 RIGHTEYE; +LISI10TA29 PO; -LISI10TA5 PO
--- NOTE | 2020-07-08 18:38 | NUR ---
PT SILVANO FROM THE STREETS C/O GENERALIZED WEAKNESS, STATES HE HAS NOT ATE FOR 2 DAYS NOW. FEELS LIKE HES GONNA PASS OUT BUT DENIES ACTUAL SYNCOPE. PLACED ON MONITOR. STABLE VITALS. AWAITING MD ZELAYA.
--- NOTE | 2020-07-08 18:40 | NUR ---
BHARATP PA AT BEDSIDE FOR EVAL.
--- NOTE | 2020-07-08 18:50 | NUR ---
IV LINE STARTED BLOOD DRAWN AND SENT TO LAB.
[2020-07-08 18:54] LABS: BASOPHILS # (AUTO) 0.1 /CMM (0.0-0.2); BASOPHILS % (AUTO) 0.7 % (0.0-2.0); EOSINOPHILS % (AUTO) 2.1 % (0.0-6.0); HEMATOCRIT 47 % (39-51); HEMOGLOBIN 16.1 g/dL (13.5-17.5); LYMPHOCYTES # (AUTO) 2.1 /CMM (0.8-4.8); LYMPHOCYTES % (AUTO) 27.9 % (20.0-44.0); MEAN CORPUSCULAR HGB CONC 35 g/dl (31.0-36.0); MEAN CORPUSCULAR VOLUME 94 fL (80-96); MONOCYTES # (AUTO) 0.8 /CMM (0.1-1.30); MONOCYTES % (AUTO) 11.3 % (2.0-12.0); NEUTROPHILS # (AUTO) 4.3 /CMM (1.8-8.9); PLATELET COUNT (AUTO) 290 /CMM (150-450); RED BLOOD CELL COUNT(AUTO) 4.98 MIL/uL (4.5-6.0); WHITE BLOOD COUNT (AUTO) 7.5 K/uL (4.3-11.0)
[2020-07-08] MEDS ORDERED: IV NS 0.9% 1,000 ML BAG IV ONE (19:00)
[2020-07-08 19:01] LABS: CALCIUM, SERUM 8.6 mg/dL (8.5-10.1); POTASSIUM 3.9 mmol/L (3.5-5.1)
--- NOTE | 2020-07-08 22:59 | NUR ---
COVID SWAB SENT TO LAB
[2020-07-08] MEDS ORDERED: ASPIRIN 81 MG TAB.CHEW ONE (23:00)
[2020-07-08] MEDS ORDERED: ASPIRIN 81 MG TAB.CHEW PO ONE (23:00)
--- NOTE | 2020-07-08 23:14 | NUR ---
SHEFALI, SISTER [phone]
--- NOTE | 2020-07-08 23:26 | NUR ---
Call from lab. Rapid covid negative.
[2020-07-09] MEDS ORDERED: NITROGLYCERIN PACKET 1 GM PACKET TOP ONE
[2020-07-09] MEDS ORDERED: NITROGLYCERIN PACKET 1 GM PACKET ONE (00:02)
--- NOTE | 2020-07-09 00:36 | NUR ---
REPORT GIVEN TO CARSON MEDINA FOR [facility] PT WILL BE TRANSPORTED TO 3RD FLOOR
--- NOTE | 2020-07-09 00:45 | NUR ---
RN NOTES Received pt. from ER with Dx. of Acute Vertigo, a/ox4, ambulatory, manipulative, SR on tele monitor , HR-[id number], pt refused skin assessment, keep on asking for food, peanut butter sandwich given, admission instruction was given but not listening, call light within reach, siderailsupx2, continue to monitopr
[2020-07-09] MEDS ORDERED: ONDANSETRON HCL/PF 4 MG/2 ML VIAL IVP PRN (01:00)
[2020-07-09] MEDS ORDERED: INSULIN REGULAR, HUMAN 100 UNIT/ML 3 ML VIAL SQ PRN (01:00)
[2020-07-09] MEDS ORDERED: MORPHINE SULFATE INJ 2 MG/ML DISP.SYRIN IV PRN (01:00)
[2020-07-09] MEDS ORDERED: TEMAZEPAM 15 MG CAPSULE PO PRN (01:00)
[2020-07-09] MEDS ORDERED: MAG HYDROX/AL HYDROX/SIMETH 30 ML UDC PO PRN (01:00)
[2020-07-09] MEDS ORDERED: DEXTROSE 50%-WATER 50 ML DISP.SYRIN IV PRN (01:00)
[2020-07-09] MEDS ORDERED: ACETAMINOPHEN 325 MG TABLET PO PRN (01:00)
[2020-07-09] MEDS ORDERED: HYDROCODONE/APAP 5/325MG TABLET PO PRN (01:00)
[2020-07-09] MEDS ORDERED: MAGNESIUM HYDROXIDE 30 ML UDC PO PRN (01:00)
[2020-07-09] MEDS ORDERED: Z GUARD REMEDY 2 OZ OINT TP PRN (01:00)
[2020-07-09] MEDS ORDERED: IV NS 0.9% 1,000 ML IV PRN (01:00)
[2020-07-09 04:00] VITALS: BP 150/80
--- NOTE | 2020-07-09 04:00 | NUR ---
rn NOTES ASKED PT IF I CAN CONNECT HIM TO HIS IV FLUID, PT REFUSED
[2020-07-09 05:00] VITALS: BP_SYST 145; BP_SYST 147; BP_SYST 150; BP_DIAS 80; BP_DIAS 84; BP_DIAS 91
--- NOTE | 2020-07-09 07:00 | NUR ---
RN NOTES AWAKE, NOT IN DISTRESS, NO PAIN NOTED, PT. NEEDS ATTENDED
[2020-07-09] MEDS: BLOOD SUGAR DIAGNOSTIC 1 EACH STRIP IN SCH ×2 (07:07→13:09)
[2020-07-09] MEDS ORDERED: PANTOPRAZOLE 40 MG TABLET.DR PO SCH (07:30)
[2020-07-09 08:00] VITALS: BP 149/79
--- NOTE | 2020-07-09 08:00 | NUR ---
RN OPENING NOTE PT AWAKE IN BED. A/O X3 AND KITTITIAN SPEAKING. ON RA WITH NO SOB OR RESPIRATORY DISTRESS PRESENT. NO COMPLAINT OF PAIN. NO COMPLAINT OF NAUSEA. SKIN IS INTACT. NO EDEMA PRESENT. AMBULATORY WITH BATHROOM PRIVILEGES. HL PRESENT ON R UE. SAFETY MEASURES IN PLACE. SIDE RAILS RAISED. BED LOWERED. CALL LIGHT WITHIN REACH. WILL CONTINUE TO MONITOR.
[2020-07-09 08:38] LABS: MAGNESIUM 2.3 mg/dL (1.8-2.4); PHOSPHORUS 3.6 mg/dL (2.5-4.9)
[2020-07-09 08:50] LABS: THYROID STIMULATING HORMONE 1.392 uIU/mL (0.358-3.74)
[2020-07-09] MEDS ORDERED: THIAMINE HCL 100 MG TABLET PO SCH (09:00)
[2020-07-09] MEDS ORDERED: ENOXAPARIN SODIUM 40 MG/0.4 ML DISP.SYRIN SQ SCH (09:00)
[2020-07-09] MEDS ORDERED: ATORVASTATIN 10 MG TABLET PO SCH (09:00)
[2020-07-09] MEDS ORDERED: LOSARTAN POTASSIUM 50 MG TABLET PO SCH (09:00)
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
[2020-07-09 16:00] VITALS: BP 150/96
== END 2020-07-09 17:01 | disposition home or self-care (01) | DRG 204 ==
LOC: ER 18:31 → TELE 07-09 00:21 → MED 07-09 08:32
PROVIDERS: ADMIT Nurse Practitioner Acute Care; ATTEND Nurse Practitioner Acute Care
DX: I95.1 Orthostatic hypotension (principal); F12.90 Cannabis use, unspecified, uncomplicated; E11.9 Type 2 diabetes mellitus without complications; I10 Essential (primary) hypertension; Z59.0 Homelessness; Z86.73 Personal history of transient ischemic attack (TIA), and cerebral infarction without residual deficits; E78.5 Hyperlipidemia, unspecified; Z79.84 Long term (current) use of oral hypoglycemic drugs; Z79.82 Long term (current) use of aspirin; Z79.02 Long term (current) use of antithrombotics/antiplatelets; Z79.899 Other long term (current) drug therapy; F17.200 Nicotine dependence, unspecified, uncomplicated; Z91.14 Patient's other noncompliance with medication regimen; I25.2 Old myocardial infarction; N17.9 Acute kidney failure, unspecified; F10.10 Alcohol abuse, uncomplicated; Y90.0 Blood alcohol level of less than 20 mg/100 ml
CPT/HCPCS: 36415; 71045-TC; 80048-TC; 80061-TC; 82140-TC; 82962-TC; 83735-TC; 84100-TC; 84439-TC; 84443-TC; 84484-TC; 85025-TC; 87081-TC; C9803; G0378; G0480; J1650; J1815; J7030

== ENCOUNTER 2020-08-09 13:23 | Emergency (ER) | payer MEDICAID, OTHER ==
[~2020-08-09] VITALS: Ht 165.1 cm; Wt 83.9 kg
[2020-08-09 15:10] LABS: BASOPHILS # (AUTO) 0.1 /CMM (0.0-0.2); BASOPHILS % (AUTO) 1.1 % (0.0-2.0); EOSINOPHILS % (AUTO) 2.1 % (0.0-6.0); HEMATOCRIT 46 % (39-51); HEMOGLOBIN 15.6 g/dL (13.5-17.5); LYMPHOCYTES # (AUTO) 1.9 /CMM (0.8-4.8); MEAN CORPUSCULAR HGB CONC 34 g/dl (31.0-36.0); MEAN CORPUSCULAR VOLUME 94 fL (80-96); MONOCYTES # (AUTO) 0.9 /CMM (0.1-1.30); NEUTROPHILS # (AUTO) 4.6 /CMM (1.8-8.9); NEUTROPHILS % (AUTO) 59.8 % (43.0-81.0); PLATELET COUNT (AUTO) 297 /CMM (150-450); RED BLOOD CELL COUNT(AUTO) 4.95 MIL/uL (4.5-6.0); WHITE BLOOD COUNT (AUTO) 7.7 K/uL (4.3-11.0)
--- NOTE | 2020-08-09 15:11 | NUR ---
BIBS TO ERBED BED. AAOX4. NOT IN RESP DISTRESS. AMBULATORY. CAME IN FOR SUDDEN INTERMITENT EPISODE OF VISION LOSS EARLIER THIS MORNING WHICH IS NOW RESOLVED AND BACK TO HIS BASELINE. PT IS NOW VERBALIZING THAT HE IS HUMGRY. WAST AT THE BEDSIDE FOR EVAL. ORDERS RECEIVED, NOTED AND CARRIED OUT. IV LINE ESTABLSIHED ON THE R AC 18G, BLOOD DRAWN AND SENT TO LAB. URINE COLLECTED WELL AND SENT TO LAB
[2020-08-09 15:14] LABS: CALCIUM, SERUM 8.5 mg/dL (8.5-10.1); CREATININE 1.3 mg/dL (0.6-1.3); POTASSIUM 4.2 mmol/L (3.5-5.1)
[2020-08-09] MEDS ORDERED: IV NS 0.9% 250 ML IV ONE (15:52)
[2020-08-09] MEDS ORDERED: IOHEXOL-350 100 ML VIAL IV ONE (15:52)
--- NOTE | 2020-08-09 17:06 | NUR ---
followed up with ROMY regarding carotid and head cta result.
--- NOTE | 2020-08-09 18:13 | NUR ---
SPOKE WITH DELMIS FROM [facility] REGARDING CTA RESULT. ACCORDING TO HER. THAT THE IMAGES ARE BEING. CALLED AT 1706 GOT THE SAME ANSWER.
[2020-08-09] MEDS ORDERED: ASPIRIN 325 MG TABLET PO ONE (19:00)
[2020-08-09] MEDS ORDERED: IV NS 0.9% 1,000 ML IV ONE (19:00)
[2020-08-09] MEDS ORDERED: ASPIRIN 325 MG TABLET ONE (19:01)
--- NOTE | 2020-08-09 19:55 | NUR ---
SPOKE WITH SANDRA ANALYSIS REPORTING DEVELOPER IN [facility] TO PATIENT'S TRANSFER TO [facility]. SANDRA WILL CALL BACK TO PROVIDE MORE INFORMATION REGARDING TRANSFER INFO.
--- NOTE | 2020-08-09 20:02 | NUR ---
LAB CALLED REGARDING NEGATIVE COVID RESULT.
--- NOTE | 2020-08-09 23:12 | NUR ---
Beni melgoza in ED - 08/09/20 at 2314 by KERMIT TRANSFER INFORMATION: PT ACCEPTED AT [facility] ACCEPTING MD BECKFORD PHONE # FOR REPORT TRANSPORT [facility]# [id number]
--- NOTE | 2020-08-09 23:14 | NUR ---
TRANSFER INFORMATION: PT ACCEPTED AT [facility] ACCEPTING MD BECKFORD PT WILL GO TO ROOM 612-B PHONE # FOR REPORT TRANSPORT [facility]# [id number]
--- NOTE | 2020-08-09 23:15 | NUR ---
[facility] NO ACLS TRANSPORT AVAILABLE.
--- NOTE | 2020-08-09 23:19 | NUR ---
[facility] NO ACLS TRANSPORT AVAILABLE
--- NOTE | 2020-08-09 23:25 | NUR ---
REPORT GIVEN TO ADAM RODRIGES FOR ANURAG AT THE [facility].
--- NOTE | 2020-08-09 23:27 | NUR ---
CALLED [facility] FOR TRANSPORT NO ACLS TRANSPORT AVAILABLE
--- NOTE | 2020-08-09 23:33 | NUR ---
[facility] NO ACLS TRANSPORT AVAILABLE
--- NOTE | 2020-08-09 23:34 | NUR ---
[facility] NO ACLS TRANSPORT AVAILABLE UNTIL TOMORROW NOON
--- NOTE | 2020-08-09 23:36 | NUR ---
CALLED [facility] NO ACLS TRANSPORT AVAILABLE
--- NOTE | 2020-08-09 23:39 | NUR ---
[facility] CALLED FOR TRANSPORT NO ACLS TRANSPORT AVAILABLE UNTIL 131 TOMORROW.
--- NOTE | 2020-08-09 23:40 | NUR ---
[facility] NO ACLS TRANSPORT AVAILABLE
--- NOTE | 2020-08-09 23:42 | NUR ---
[facility] NO ACLS TRANSPORT AVAILABLE
--- NOTE | 2020-08-09 23:43 | NUR ---
[facility] CALLED NO ACLS TRANSPORT AVAILABLE
--- NOTE | 2020-08-09 23:47 | NUR ---
CALLED [facility] NO ACLS TRANSPORT AVAILABLE
--- NOTE | 2020-08-09 23:48 | NUR ---
[facility] NO ACLS TRANSPORT AVAILABLE
--- NOTE | 2020-08-09 23:51 | NUR ---
SPOKE TO SANDRA ROMERO) FROM [facility] MADE AWARE OF NO AVAILABLE ALS TRANSPORT AT THIS TIME AND THE SOONEST ETA IS TOMORROW NOON OR LATER.
--- NOTE | 2020-08-10 00:02 | NUR ---
NO ACLS CREW AVAILABLE FOR TRANSPORT THROUGH [facility] UNTIL TOMOROW AFTERNOON.
--- NOTE | 2020-08-10 00:59 | NUR ---
SPOKE TO SANDRA ROMERO) FROM [facility] MADE AWARE [facility] BUT NEEDS TO FAX AUTH.
--- NOTE | 2020-08-10 02:59 | NUR ---
SPOKE WITH RON FROM [facility], TOOK PTS INFO AND WILL HAVE AN ALS UNIT HERE BY 7 OR 8AM LATEST. EXPECTING A CALL FROM THEIR DISPATCH AROUND 0630 WITH TRANSFER INFORMATION.
--- NOTE | 2020-08-10 04:16 | NUR ---
PT REMAINS ASLEEP, ON MONITOR, AND PULSE OX.
--- NOTE | 2020-08-10 07:20 | NUR ---
CALLED NIKA FOR FOLLOW UP ETA. [phone]
--- NOTE | 2020-08-10 07:44 | NUR ---
SPOKED TO PATRIZIA FOR ALS TRANSFER TO [facility]
--- NOTE | 2020-08-10 07:50 | NUR ---
TRANSPORT CALLED AB ETA 1100 PER CYNDY TRIP #[id number]
--- NOTE | 2020-08-10 09:55 | NUR ---
SPOKED TO DAVID MEDINA OF [facility] AND AWARE OF THIS PATIENT WILL GO TO ROOM 612-B
[2020-08-10 12:42] VITALS: BP 129/81
--- NOTE | 2020-08-10 12:42 | NUR ---
REPORT GIVEN TO EMS FOR PT TRANSFER TO [facility]
== END 2020-08-10 12:45 | disposition short-term general hospital (02) ==
LOC: ER 13:23
DX: H53.123 Transient visual loss, bilateral (principal); I65.01 Occlusion and stenosis of right vertebral artery; Z20.822 Contact with and (suspected) exposure to COVID-19; E86.0 Dehydration; R91.1 Solitary pulmonary nodule; Z86.73 Personal history of transient ischemic attack (TIA), and cerebral infarction without residual deficits; Z87.891 Personal history of nicotine dependence; I65.23 Occlusion and stenosis of bilateral carotid arteries
CPT/HCPCS: 36415; 70496; 70498; 80048; 82962; 85025; 85730; 87081; 87426; 93005; 96360; 99285; C9803; J7030; J7050; Q9967

== ENCOUNTER 2020-10-23 14:11 | Emergency (ER) | payer MEDICAID, OTHER ==
[~2020-10-23] VITALS: Ht 165.1 cm; Wt 79.4 kg
--- NOTE | 2020-10-23 19:05 | NUR ---
rec'd report from tomy rivera for holly
--- NOTE | 2020-10-23 19:12 | NUR ---
pt rec'd to er c/o dizzy and untreated htm . given iv rt fa labs drawns ent to lab given dinner AWAITING EVALUATION BY ER PROVIDER.
[2020-10-23] MEDS: IV NS 0.9% 1,000 ML BAG IV ONE (19:19)
[2020-10-23] MEDS ORDERED: ONDANSETRON HCL/PF 4 MG/2 ML VIAL ONE (19:20)
[2020-10-23] MEDS ORDERED: KETOROLAC TROMETHAMINE 15 MG/ML VIAL ONE (19:20)
[2020-10-23 19:27] LABS: CALCIUM, SERUM 8.6 mg/dL (8.5-10.1); POTASSIUM 3.3 mmol/L (3.5-5.1)
[2020-10-23] MEDS: ONDANSETRON HCL/PF 4 MG/2 ML VIAL IVP ONE (19:29)
[2020-10-23] MEDS: KETOROLAC TROMETHAMINE INJ 30 MG/ML VIAL IV ONE (19:29)
[2020-10-23 19:45] LABS: ALBUMIN 3.6 g/dL (3.4-5.0); BILIRUBIN,DIRECT 0.1 mg/dL (0.0-0.2); BILIRUBIN,TOTAL 0.4 mg/dL (0.2-1.0); TOTAL PROTEIN, SERUM 7.2 g/dL (6.4-8.2)
[2020-10-23 19:49] LABS: BASOPHILS # (AUTO) 0.1 K/uL (0.0-0.2); BASOPHILS % (AUTO) 0.9 % (0.0-2.0); EOSINOPHILS % (AUTO) 1.5 % (0.0-6.0); HEMATOCRIT 43 % (39-51); HEMOGLOBIN 14.8 g/dL (13.5-17.5); LYMPHOCYTES # (AUTO) 1.9 K/uL (0.8-4.8); LYMPHOCYTES % (AUTO) 17.9 % (20.0-44.0); MEAN CORPUSCULAR HGB CONC 34 g/dl (31.0-36.0); MEAN CORPUSCULAR VOLUME 93 fL (80-96); MONOCYTES # (AUTO) 0.8 K/uL (0.1-1.30); MONOCYTES % (AUTO) 7.7 % (2.0-12.0); NEUTROPHILS # (AUTO) 7.6 K/uL (1.8-8.9); PLATELET COUNT (AUTO) 343 K/uL (150-450); RED BLOOD CELL COUNT(AUTO) 4.66 MIL/uL (4.5-6.0); WHITE BLOOD COUNT (AUTO) 10.6 K/uL (4.3-11.0)
--- NOTE | 2020-10-23 20:33 | NUR ---
Patient discharged to home in stable condition. Written and verbal after care instructions given. Patient verbalizes understanding of instruction. IV removed. Catheter intact and site benign. Pressure and 4x4 applied to site. No bleeding noted. PT ambulatory with a steady gait
[2020-10-23 20:43] VITALS: BP 112/68
== END 2020-10-23 20:33 | disposition home or self-care (01) ==
LOC: ER 14:13
DX: F10.10 Alcohol abuse, uncomplicated (principal); Z59.0 Homelessness; Z76.5 Malingerer [conscious simulation]; R42 Dizziness and giddiness; I10 Essential (primary) hypertension; E11.9 Type 2 diabetes mellitus without complications; F17.200 Nicotine dependence, unspecified, uncomplicated; Z86.73 Personal history of transient ischemic attack (TIA), and cerebral infarction without residual deficits; Y90.9 Presence of alcohol in blood, level not specified
CPT/HCPCS: 36415; 80048; 80076; 83690; 84484; 85025; 96361; 96374; 96375; 99284; J1885; J2405; J7030

== ENCOUNTER 2020-11-04 23:40 | Emergency (ER) | payer OTHER ==
[~2020-11-04] VITALS: Ht 165.1 cm; Wt 86.2 kg
[2020-11-05 00:01] VITALS: BP 135/77
--- NOTE | 2020-11-05 01:28 | NUR ---
PATIENT LEFT AFTER TRIAGE.
== END 2020-11-05 01:29 | disposition left against medical advice (07) ==
LOC: ER 23:45
DX: Z53.21 Procedure and treatment not carried out due to patient leaving prior to being seen by health care provider (principal); I10 Essential (primary) hypertension; E11.9 Type 2 diabetes mellitus without complications

== ENCOUNTER 2020-11-18 14:32 | Emergency (ER) | payer OTHER ==
[~2020-11-18] VITALS: Ht 165.1 cm; Wt 85.7 kg
--- NOTE | 2020-11-18 14:42 | NUR ---
BIB RA 39 FROM AN ALLEY, C/O WEAKNESS AND DIZZINESS X 1 HR AGO. DENIES PAIN. IN ROOM AIR AND DENIES SOB. RESPIRATION REGULAR AND UNLABORED. WILL CONTINUE TO MONITOR THE PATIENT.
[2020-11-18] MEDS ORDERED: MECLIZINE HCL 25 MG TABLET ONE (15:19)
[2020-11-18] MEDS ORDERED: ONDA4TAB5 PO (15:20)
[2020-11-18] MEDS ORDERED: MECL-159 PO (15:20)
[2020-11-18] MEDS: MECLIZINE HCL 12.5 MG TABLET PO ONE (15:26)
[2020-11-18 15:51] VITALS: BP 133/84
--- NOTE | 2020-11-18 15:51 | NUR ---
Patient discharged to home in stable condition. Written and verbal after care instructions given. Patient verbalizes understanding of instruction.
== END 2020-11-18 15:52 | disposition home or self-care (01) ==
LOC: ER 14:36
DX: R42 Dizziness and giddiness (principal); I10 Essential (primary) hypertension; E11.9 Type 2 diabetes mellitus without complications; F17.200 Nicotine dependence, unspecified, uncomplicated; Z86.73 Personal history of transient ischemic attack (TIA), and cerebral infarction without residual deficits; Z60.2 Problems related to living alone
CPT/HCPCS: 93005; 99283; J8597

== ENCOUNTER 2020-11-30 18:14 | Emergency (ER) | payer OTHER ==
[~2020-11-30] VITALS: Ht 165.1 cm; Wt 83.5 kg
[~2020-11-30 18:14] MED LIST changes: -ASPI-1420 PO; -ATOR40TA PO; -CLOP75TA15 PO; -LATA2.5D15 RIGHTEYE; -LISI10TA29 PO; +MECL-159 PO; -METF-440 PO; +ONDA4TAB5 PO
--- NOTE | 2020-11-30 19:05 | NUR ---
PT AAOX4. [id number] FROM THE [facility] C/O BEING DIZZINESS STATING THE ROOM IS SPINNING. PLACED IN BED 10, ON MONITOR AND PULSE OX. IV LINE ESTABLISHED RAC 20G, BLOOD WORK COLLECTED, SENT TO LAB.
[2020-11-30 19:29] LABS: BASOPHILS # (AUTO) 0.1 K/uL (0.0-0.2); HEMATOCRIT 47 % (39-51); HEMOGLOBIN 15.9 g/dL (13.5-17.5); LYMPHOCYTES # (AUTO) 2.2 K/uL (0.8-4.8); LYMPHOCYTES % (AUTO) 23.9 % (20.0-44.0); MEAN CORPUSCULAR HGB CONC 34 g/dl (31.0-36.0); MEAN CORPUSCULAR VOLUME 93 fL (80-96); MONOCYTES % (AUTO) 10.8 % (2.0-12.0); NEUTROPHILS # (AUTO) 5.8 K/uL (1.8-8.9); NEUTROPHILS % (AUTO) 62.3 % (43.0-81.0); PLATELET COUNT (AUTO) 296 K/uL (150-450); RED BLOOD CELL COUNT(AUTO) 5.06 MIL/uL (4.5-6.0); WHITE BLOOD COUNT (AUTO) 9.3 K/uL (4.3-11.0)
[2020-11-30] MEDS ORDERED: IV NS 0.9% 1,000 ML IV ONE (19:30)
[2020-11-30] MEDS ORDERED: MECLIZINE HCL 25 MG TABLET PO ONE (19:30)
[2020-11-30] MEDS ORDERED: MECLIZINE HCL 25 MG TABLET ONE (19:33)
[2020-11-30 19:38] LABS: CALCIUM, SERUM 8.4 mg/dL (8.5-10.1); CARBON DIOXIDE 31 mmol/L (21-32); CHLORIDE 106 mmol/L (98-107); CREATININE 1.3 mg/dL (0.6-1.3); GLUCOSE 70 mg/dL (74-106); POTASSIUM 3.8 mmol/L (3.5-5.1); SODIUM SERUM 142 mmol/L (136-145); UREA NITROGEN, BLOOD 17 mg/dL (7-18)
--- NOTE | 2020-11-30 20:11 | NUR ---
NOTED BG TO BE 70, PROVIDED WITH 2 OJ AND A SANDWHICH. VSS. NO ACUTE DISTRESS.
[2020-11-30] MEDS ORDERED: MECL-159 PO (20:41)
--- NOTE | 2020-11-30 20:48 | NUR ---
IV removed. Catheter intact and site benign. Pressure and 4x4 applied to site. No bleeding noted.
--- NOTE | 2020-11-30 20:53 | NUR ---
Patient discharged to home in stable condition. Written and verbal after care instructions given. Patient verbalizes understanding of instruction and RX. Pt ambulated out of ED. VSS.
[2020-11-30 20:54] VITALS: BP 116/75
== END 2020-11-30 20:54 | disposition home or self-care (01) ==
LOC: ER 18:21
DX: R42 Dizziness and giddiness (principal); E86.0 Dehydration; I10 Essential (primary) hypertension; E11.9 Type 2 diabetes mellitus without complications; E78.5 Hyperlipidemia, unspecified; I25.10 Atherosclerotic heart disease of native coronary artery without angina pectoris; F17.200 Nicotine dependence, unspecified, uncomplicated; Z60.2 Problems related to living alone; Z86.73 Personal history of transient ischemic attack (TIA), and cerebral infarction without residual deficits; Z79.899 Other long term (current) drug therapy
CPT/HCPCS: 36415; 70450; 80048; 84484; 85025; 93005; 96360; 99285; J7030; J8597

== ENCOUNTER 2020-12-02 19:27 | Emergency (ER) | payer OTHER ==
[~2020-12-02] VITALS: Ht 165.1 cm; Wt 77.1 kg
[2020-12-02 19:40] VITALS: BP 128/81
[2020-12-02] MEDS ORDERED: MECLIZINE HCL 25 MG TABLET ONE (21:27)
[2020-12-02] MEDS ORDERED: MECLIZINE HCL 12.5 MG TABLET PO ONE (21:30)
== END 2020-12-02 21:33 | disposition home or self-care (01) ==
LOC: ER 19:27
DX: R42 Dizziness and giddiness (principal); I10 Essential (primary) hypertension; E11.9 Type 2 diabetes mellitus without complications; F10.10 Alcohol abuse, uncomplicated; F17.200 Nicotine dependence, unspecified, uncomplicated; Y90.9 Presence of alcohol in blood, level not specified; Z86.73 Personal history of transient ischemic attack (TIA), and cerebral infarction without residual deficits; Z59.0 Homelessness; Z79.899 Other long term (current) drug therapy
CPT/HCPCS: 99283; J8597

== ENCOUNTER 2020-12-04 17:35 | Emergency (ER) | payer MEDICAID, OTHER ==
[~2020-12-04] VITALS: Ht 165.1 cm; Wt 77.1 kg
--- NOTE | 2020-12-04 17:42 | NUR ---
barbara from the street to er bed 7. aaox4. not in resp distress. ambulatory. brought in for lightheadedness, dizzyness and weakness. pt pt, he was feeling hot then felt lightheaded and dizzy. ems reports pt's initial BP on scene was in 90s. pt was given fluids via iv by ems, reports about 400ml. pt verblized that he felt better after the fluids. pt on monitor. awaiting md.
[2020-12-04] MEDS ORDERED: IV NS 0.9% 1,000 ML BAG IV ONE (18:00)
[2020-12-04] MEDS ORDERED: MECLIZINE HCL 12.5 MG TABLET PO ONE (18:00)
[2020-12-04] MEDS ORDERED: MECLIZINE HCL 25 MG TABLET ONE (18:43)
[2020-12-04 19:44] VITALS: BP 132/77
== END 2020-12-04 19:45 | disposition home or self-care (01) ==
LOC: ER 17:41
DX: R53.1 Weakness (principal); E86.0 Dehydration; I10 Essential (primary) hypertension; E11.9 Type 2 diabetes mellitus without complications; Z59.0 Homelessness; Z86.73 Personal history of transient ischemic attack (TIA), and cerebral infarction without residual deficits
CPT/HCPCS: 82962; 93005; 96360; 99283; J7030; J8597

== ENCOUNTER 2020-12-05 15:43 | Emergency (ER) | payer MEDICAID ==
[~2020-12-05] VITALS: Ht 165.1 cm; Wt 77.1 kg
--- NOTE | 2020-12-05 15:55 | NUR ---
BIBRA FROM THE STREET TO ER BED 20. AAOX4. NOT IN RESP DISTRESS. BREATHING EVENA ND UNLABORED. AMBULATORY ON STEADY GAIT. CAME IN FOR SOB. ACCORDING TO THE PT, HE WAS SOB EALIER BECAUSE IT IS HOT OUTSIDE. PT IS TALKING IN FULL SENTENCES WITH 02 SAT 98%. AWAITING MD FOR EVAL.
--- NOTE | 2020-12-05 17:58 | NUR ---
Patient discharged to home in stable condition. Written and verbal after care instructions given. Patient verbalizes understanding of instruction. Pt ambulatory with a steady gait
[2020-12-05 18:05] VITALS: BP 123/78
--- NOTE | 2020-12-06 10:37 | NUR ---
Ceo And President note: application services manager requested for homelessness. Pt is a 60-year-old, male. SS was unable interview pt as pt had already been discharged. No further SS intervention at this time, however, SS will remain available as needed.
== END 2020-12-05 18:10 | disposition home or self-care (01) ==
LOC: ER 15:47
DX: T73.0XXA Starvation, initial encounter (principal); R53.83 Other fatigue; Z59.0 Homelessness; I10 Essential (primary) hypertension; E11.9 Type 2 diabetes mellitus without complications; E78.5 Hyperlipidemia, unspecified; Z86.73 Personal history of transient ischemic attack (TIA), and cerebral infarction without residual deficits; Z79.899 Other long term (current) drug therapy; X58.XXXA Exposure to other specified factors, initial encounter

== ENCOUNTER 2021-01-07 18:25 | Emergency (ER) | payer MEDICAID ==
[~2021-01-07] VITALS: Ht 167.6 cm; Wt 72.6 kg
[2021-01-07 19:27] VITALS: BP 114/76
== END 2021-01-07 20:15 | disposition home or self-care (01) ==
LOC: ER 18:48
DX: M54.9 Dorsalgia, unspecified (principal); I10 Essential (primary) hypertension; E11.9 Type 2 diabetes mellitus without complications; F10.10 Alcohol abuse, uncomplicated; F17.200 Nicotine dependence, unspecified, uncomplicated; Y90.9 Presence of alcohol in blood, level not specified; Z59.0 Homelessness; Z86.73 Personal history of transient ischemic attack (TIA), and cerebral infarction without residual deficits; Z79.899 Other long term (current) drug therapy

== ENCOUNTER 2021-01-19 19:25 | Emergency (ER) | payer MEDICAID, OTHER ==
[~2021-01-19] VITALS: Ht 167.6 cm; Wt 77.1 kg
--- NOTE | 2021-01-19 19:30 | NUR ---
PT AAOX4. 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 AMBULATORY WITH STEADY GAIT. PLACED IN BED 15 ON MONITOR AND PULSE OX. NO ACUTE DISTRESS NOTED. AWAITING ER MD FOR EVAL AND ORDER.
[2021-01-19] MEDS ORDERED: IV NS 0.9% 1,000 ML IV ONE (20:00)
--- NOTE | 2021-01-19 21:00 | NUR ---
Patient given written and verbal discharge instructions. Patient verbalizes understanding of instructions. Patient is ambulatory with steady gait. Refuses offer of retirement placement. Patient given list of available shelters in surrounding area.
--- NOTE | 2021-01-19 21:01 | NUR ---
Patient discharged to home in stable condition. Written and verbal after care instructions given. Patient verbalizes understanding of instruction. IV removed. Catheter intact and site benign. Pressure and 4x4 applied to site. No bleeding noted. pT ambulatory with a steady gait
[2021-01-19 21:07] VITALS: BP 138/75
== END 2021-01-19 21:01 | disposition home or self-care (01) ==
LOC: ER 19:27
DX: E86.0 Dehydration (principal); T73.0XXA Starvation, initial encounter; R42 Dizziness and giddiness; I10 Essential (primary) hypertension; E78.5 Hyperlipidemia, unspecified; E11.9 Type 2 diabetes mellitus without complications; Z59.0 Homelessness; Z86.73 Personal history of transient ischemic attack (TIA), and cerebral infarction without residual deficits; Z79.899 Other long term (current) drug therapy; X58.XXXA Exposure to other specified factors, initial encounter
CPT/HCPCS: 96360; 99283; J7030

== ENCOUNTER 2021-02-08 11:55 | Emergency (ER) | payer MEDICAID, OTHER ==
[~2021-02-08] VITALS: Ht 167.6 cm; Wt 77.1 kg
[2021-02-08] MEDS ORDERED: MECLIZINE HCL 12.5 MG TABLET PO ONE (12:30)
[2021-02-08] MEDS ORDERED: MECLIZINE HCL 25 MG TABLET ONE (12:31)
--- NOTE | 2021-02-08 12:40 | NUR ---
Patient bibra from an alley being cold and dizzy. On room air, breathing evenly, unlabored. Connected to the monitor and pulse ox. Kept comfortable, will continue to monitor accordingly.
[2021-02-08 12:55] LABS: BASOPHILS # (AUTO) 0.1 K/uL (0.0-0.2); BASOPHILS % (AUTO) 1.4 % (0.0-2.0); EOSINOPHILS % (AUTO) 2.2 % (0.0-6.0); HEMATOCRIT 49 % (39-51); HEMOGLOBIN 16.8 g/dL (13.5-17.5); LYMPHOCYTES # (AUTO) 2.5 K/uL (0.8-4.8); LYMPHOCYTES % (AUTO) 32.9 % (20.0-44.0); MEAN CORPUSCULAR HGB CONC 34 g/dl (31.0-36.0); MEAN CORPUSCULAR VOLUME 93 fL (80-96); MONOCYTES # (AUTO) 0.8 K/uL (0.1-1.30); NEUTROPHILS # (AUTO) 3.9 K/uL (1.8-8.9); NEUTROPHILS % (AUTO) 52.5 % (43.0-81.0); PLATELET COUNT (AUTO) 287 K/uL (150-450); RED BLOOD CELL COUNT(AUTO) 5.26 MIL/uL (4.5-6.0); WHITE BLOOD COUNT (AUTO) 7.5 K/uL (4.3-11.0)
[2021-02-08 13:09] LABS: POTASSIUM 4.2 mmol/L (3.5-5.1)
--- NOTE | 2021-02-08 13:52 | NUR ---
TISSUE INSERTER AT BEDSIDE FOR CONSULT.
--- NOTE | 2021-02-08 15:28 | NUR ---
radiology services manager consult: Social service consult requested for possible homelessness and drug abuse. The pt. is 60- year old male in ED history of coronary artery disease, CVA who was brought in by "his brother reported being cold and dizzy" per EMR. SW met with patient bedside. The person is currently A&O x 2 and makes no eye contact. Pt. is in bed sleeping. The pt. appears disheveled and malodorous. The pt. was drowsy and difficult to engage in conversation as he kept falling asleep. Pt. denies current SI/HI and denies current hallucinations. The pt.'s brother, Logan Minor [phone] was at bedside and requested to speak to SW about placement. Per Logan, pt. has HX. of CVA, High Blood Pressure, and diabetes. Per Logan, pt. needs assistance with medication management and stated he cannot care for patient. SW explored if pt. received any income. Logan stated pt. used to receive SSI and lost his wallet so he is unable to access those funds. SW discussed with Case Management and the pt. does not meet criteria for senior care care at this time, he will not be accepted. Per Logan's requested SW called APS worker, Nisha Salas [phone]. Nisha stated she received APS report for pt. due to self-neglect and per Nisha pt. has HX. of Amphetamine abuse. SW explained placement issue and that this SW can only refer pt. to skilled nursing. Nisha expressed understanding and stated she would like pt. to remain on the street he has been residing so that she can continue to establish contact with pt. Nisha stated she will refer pt. to [facility] for homeless rehousing programs. TANISHA called Logan multiple times and left various voicemails informing him about the placement situation. DC Plan: Pt. to be picked up by brother, Logan Minor [phone]. APS worker, Nisha Salas [phone] will refer pt. to Homeless rehousing programs. SW will provide Logan with homeless resources as pt. did not accept resources or sign homeless waiver. Year-round shelters: [facility] [address] [place] [address] ; [facility] [place] [address] [place] [address]; [facility] [address] [place]. [facility] [address] Winter Shelters: Vibha Puckett [place] Provider: Brittnee of [place] Address: [address], [address] # of Beds: 47 Population Served: [facility] 6 | [facility] Lois Grace [place] Provider: [facility] at Last Address: [address] [place] [address], [address] # of Beds: 66 Population Served: [facility] [place] Provider: First to Serve Address: [address] [facility], [address] # of Beds: 56 Population Served: [facility] [place] Provider: SSMaranda/[facility] Address: [address] [facility], [address] # of Beds: 49 Population Served: [facility] 8 | [facility] Provider: First to Serve Address: [address] [facility]. [place], [address] # of Beds: 37 Population Served: [facility] Hygiene: [facility]: [address] [place] [facility] ; [facility] [address] [facility] ; [facility] [address] [facility] . Food Resources: [place] [facility] at [facility]- [address] [facility]; Meet Each Need with Dignity ([facility]) [address] [facility] [place]; [facility] Food [facility] [address] [facility]; [facility] 0104 [facility]. Mental Health resources provided: [facility] [address] [place] [address] ; [facility] [place] [address] [facility] [address], [place] [address] ; [facility] [address] [place] [address] ; [facility] [address] [place], [place] [address] Healthcare Clinics: [facility] [address] [facility], [address] [place]. [place] ; [facility] [address] [facility] [address] [facility] [address]; [facility] [address] [facility] [phone] Counseling--Outpatient [facility] [address] [facility], [place] [address] (Specializes in in-depth psychotherapy for emotional distress: anxiety, depression, interpersonal conflicts, life transitions, childhood abuse) [facility] [address] [place] [address] (Assist with solving problem marital difficulties, separation & divorce, aging parents, & grief, chronic & terminal illness) [facility] [address] [place] [address] (Deal with loss & grief, anxiety, marital difficulties) Homebound/Mental Health Services [address] [facility], [address] [place] [address] (Provide in-home mental services to people who are incapable of leaving their homes) Organization for Needs of the Elderly Senior Service/Resource Center [address] [facility] [place] [address] [facility] [address] [facility] [place] [address] PSYCHIATRIC OUTPATIENT SERVICES [facility] Partial Hospitalization and Intensive Outpatient Program (Managed Care and [place] Only)[address] [place]. [facility] [phone] [facility] Partial Hospitalization and Outpatient [id number] [facility]. [address] [place], [place] [phone] ELIUD VAZQUEZ [facility] [id number] [facility]. [address] [place], [place] [phone] [facility] Partial Hospitalization and Outpatient [id number] Jaren Varghese, [phone] Substance Abuse resources provided included: [facility] Substance Abuse Self-Helpline ([facility]) ; CRI -HELP [address] [facility] [place]. [place] [address] ; [facility] [place] [address] [facility] [address] ; [facility] Rehabilitation Program [address] [facility] [address] ; [facility] [address] [facility] [address] ; [facility] [address] [facility] [address] ; D[facility] [address]09 [facility] [phone] ; [facility] Substance Abuse Helpline([facility] ; [facility] ; [facility]; [facility] [place]; [facility] [place]; [facility] Eliud jonny; [facility]; [facility] [place]; [facility] [place] [facility]; [facility]'s [place] [place]; Alcoholics Anonymous -SFV; Jx-Gngi-Esdjmwd ; Marijuana Anonymous -SFV; Narcotics Anonymous www.na.org;
--- NOTE | 2021-02-09 00:02 | NUR ---
PATIENT IS COMFORTABLY IN BED RESTING, ON THE MONITOR.
--- NOTE | 2021-02-09 02:30 | NUR ---
NO COMPLAINTS OF DISCOMFORT AT THIS TIME PT ON MONITOR WILL CONTINUE TO MONITOR.
--- NOTE | 2021-02-09 04:04 | NUR ---
PATIENT RESTING COMFORTABLY IN BED ON THE MONITOR NO COMPLAINTS
--- NOTE | 2021-02-09 05:40 | NUR ---
CALLED ANNE MARIE, PT'S BROTHER, TO PAYABLE MANAGER THE PT IT'S MENTIONED IN SOCIAL WORDER'S NOTE. O ANSWER. LEFT A MESSAGE
--- NOTE | 2021-02-09 08:09 | NUR ---
THE PATIENT IS RECEIVED IN BED SLEEPING. RESPONSIVE TO VERBAL STIMULI. RESPIRATION REGULAR AND UNLABORED. WILL CONTINUE TO MONITOR THE PATIENT
--- NOTE | 2021-02-09 09:44 | NUR ---
Left message to brother, Logan Minor [phone]. Will continue to follow up.
--- NOTE | 2021-02-09 09:55 | NUR ---
SPOKE WITH CINDI MELLO (EX-) AND SHE WILL PICK HIM UP IN ONE HOUR.
--- NOTE | 2021-02-09 10:15 | NUR ---
TANISHA called APS worker, Nisha Powellamalia [phone] and notified her that the pt. is still in the ED and that pt.'s brother never responded to calls or picked up the pt. TANISHA notified Nisha that pt. will be picked up by ex .
[2021-02-09 11:44] VITALS: BP 123/74
--- NOTE | 2021-02-09 11:44 | NUR ---
THE PATIENT IS PICKED UP BY EX-.
--- NOTE | 2021-02-09 11:44 | NUR ---
Patient discharged to home in stable condition. Written and verbal after care instructions given. Patient verbalizes understanding of instruction.
== END 2021-02-09 11:45 | disposition home or self-care (01) ==
LOC: ER 12:38
DX: R53.1 Weakness (principal); R42 Dizziness and giddiness; I10 Essential (primary) hypertension; E11.9 Type 2 diabetes mellitus without complications; F10.10 Alcohol abuse, uncomplicated; F17.200 Nicotine dependence, unspecified, uncomplicated; Y90.9 Presence of alcohol in blood, level not specified; Z59.00 Homelessness unspecified; Z79.899 Other long term (current) drug therapy; Z86.73 Personal history of transient ischemic attack (TIA), and cerebral infarction without residual deficits
CPT/HCPCS: 36415; 70450; 71045; 80048; 82962; 84484; 85025; 93005; 99285; J8597

== ENCOUNTER 2021-03-04 17:05 | Emergency (ER) | payer MEDICAID, OTHER ==
[~2021-03-04] VITALS: Ht 167.6 cm; Wt 77.1 kg
[2021-03-04 18:10] VITALS: BP 132/82
--- NOTE | 2021-03-04 19:39 | NUR ---
Patient discharged to home in stable condition. Written and verbal after care instructions given. Patient verbalizes understanding of instruction.
== END 2021-03-04 19:39 | disposition home or self-care (01) ==
LOC: ER 17:09
DX: T73.0XXA Starvation, initial encounter (principal); F17.200 Nicotine dependence, unspecified, uncomplicated; R53.83 Other fatigue; Z59.00 Homelessness unspecified; I10 Essential (primary) hypertension; E11.9 Type 2 diabetes mellitus without complications; X58.XXXA Exposure to other specified factors, initial encounter

== ENCOUNTER 2021-03-06 18:31 | Emergency (ER) | payer OTHER ==
[~2021-03-06] VITALS: Ht 167.6 cm; Wt 77.1 kg
--- NOTE | 2021-03-06 19:03 | NUR ---
TO ER BED 13, BIB [address] C/O "FEELING SICK AND HUNGRY", AAOX3, BREATHING EVEN AND NON LABORED, CONNECTED TO MONITOR
--- NOTE | 2021-03-06 21:05 | NUR ---
Patient discharged to home in stable condition. Written and verbal after care instructions given. Patient verbalizes understanding of instruction.
[2021-03-06 21:06] VITALS: BP 158/70
== END 2021-03-06 21:08 | disposition home or self-care (01) ==
LOC: ER 18:37
DX: F32.9 Major depressive disorder, single episode, unspecified (principal); I10 Essential (primary) hypertension; E11.9 Type 2 diabetes mellitus without complications; F17.200 Nicotine dependence, unspecified, uncomplicated; Z86.73 Personal history of transient ischemic attack (TIA), and cerebral infarction without residual deficits; Z59.00 Homelessness unspecified